=== PATIENT | male | born 1960 | race Caucasian/White ===

== ENCOUNTER 2019-11-25 12:37 | Inpatient (IN) | payer SELFPAY ==
[~2019-11-25] VITALS: Ht 172.7 cm; Wt 88.5 kg
--- NOTE | 2019-11-25 13:04 | Emergency Department Note ---
History of Present Illnes History of Present Illness Chief Complaint: General Medicine Complaints History of Present Illness This is a 59 year old male arrives the ED with diffuse body swelling abdominal distention. States he is concerned he has liver cirrhosis. Patient minutes to drinking daily. Chief Complaint Comment Patient in from home with complaints of abdominal distension, bilateral lower extremity edema, and generalized pain from "everything being so tight". Patient reports a recent weight gain of 20-30 lbs. Patient reports that he was at [facility] 2 weeks ago where they tested his liver with an MRI and he was told his liver is "borderline". They discharged him home with lisinopril with HCTZ and told him that would help with the swelling. Patient states that it has not helped at all. Socially, the patient does report daily drinking of at least 2 beers with heavier consumption on other days. Patient denies smoking or history of smoking. Patient does have a jaundiced appearance to his skin and eyes. Historian: Patient Arrival Mode: Car Onset (how long ago): day(s) Severity: mild Duration (how long): day(s) Progression: worsening Chronicity: new Past Medical/Family History Physician Review I have reviewed the patient's past medical and family history. Any updates have been documented here. Past Medical History Recent Fever: No Clinical Suspicion of Infectio: No New/Unexplained Change in Ment: No Past Medical History: Hypertension Other Medical History: seasonal allergies Other Surgery: prostatectomy Social History Smoking Cessation: Never Smoker Alcohol Use: Daily Any Illegal Drug Use: No Physically hurt or threatened: No Other Any Pre-Existing Lines (PICC,: No Review of Systems Review of Systems Constitutional: Reports no symptoms EENTM: Reports no symptoms Cardiovascular: Reports no symptoms Respiratory: Reports no symptoms Gastrointestinal: Reports as per HPI, Reports abdominal pain Genitourinary: Reports no symptoms Musculoskeletal: Reports no symptoms Integumentary: Reports no symptoms Neurological: Reports no symptoms Psychological: Reports no symptoms Endocrine: Reports no symptoms Hematological/Lymphatic: Reports no symptoms Physical Exam Related Data Allergies: Coded Allergies: No Known Allergies (Unverified , 11/25/19) Triage Vital Signs Vital Signs Date Time Temp Pulse Resp B/P (MAP) Pulse Ox O2 Delivery O2 Flow Rate FiO2 11/25/19 12:40 98.3 125 18 175/131 97 Room Air Vital signs reviewed: Yes Physical Exam CONSTITUTIONAL Constitutional: Present well-developed, Present well-nourished, Present other (diffuse anasarca) HENT HENT: Present normocephalic, Present atraumatic, Present oropharynx clear/moist, Present nose normal HENT L/R: Present left ext ear normal, Present right ext ear normal EYES Eyes: Reports PERRL, Reports conjunctivae normal NECK Neck: Present ROM normal PULMONARY Pulmonary: Present effort normal, Present breath sounds normal CARDIOVASCULAR Cardiovascular: Present regular rhythm, Present heart sounds normal, Present capillary refill normal, Present normal rate GASTROINTESTINAL Abdominal: Present soft, Present bowel sounds normal, Present distension, Present tender GENITOURINARY Genitourinary: Present exam deferred SKIN Skin: Present warm, Present dry MUSCULOSKELETAL Musculoskeletal: Present ROM normal NEUROLOGICAL Neurological: Present alert, Present oriented x 3, Present no gross motor or sensory deficits PSYCHOLOGICAL Psychological: Present mood/affect normal, Present judgement normal Results Laboratory Lab results reviewed: Yes Laboratory comments Laboratory Tests Test 11/25/19 15:38 11/25/19 14:14 11/25/19 12:00 Urine Color Brown (YELLOW) Urine Clarity Cloudy (CLEAR) Urine pH 5.5 (5 - 7) Urine Specific [place] 1.025 (1.010-1.025) Urine Protein Negative (NEGATIVE) Urine Glucose (UA) Negative (NEGATIVE) Urine Ketones Negative (NEGATIVE) Urine Blood Negative (NEGATIVE) Urine Nitrite Negative (NEGATIVE) Urine Bilirubin Small (NEGATIVE) Urine Urobilinogen 1 mg/dL (0.2 - 1) Urine Leukocyte Esterase Negative (NEGATIVE) Urine RBC None /HPF (0-5) Urine WBC None /HPF (0-5) Urine Epithelial Cells None /LPF (NONE) Urine Bacteria None /HPF (NONE) Lactic Acid Level 1.9 mmol/L (0.5-2.0) White Blood Count 10.48 x10e3/uL (4.8-10.8) Red Blood Count 3.44 x10e6/uL (4.3-5.7) Hemoglobin 11.4 g/dL (14.0-18.0) Hematocrit 34.6 % (38.2-49.6) Mean Corpuscular Volume 100.6 fL (81-99) Mean Corpuscular Hemoglobin 33.1 pg (28-32) Mean Corpuscular Hemoglobin Concent 32.9 g/dL (31-35) Red Cell Distribution Width 17.8 % (11.7-14.4) Platelet Count 297 x10e3/uL (140-360) Neutrophils (%) (Auto) 67.8 % (38.7-80.0) Lymphocytes (%) (Auto) 15.8 % (18.0-39.1) Monocytes (%) (Auto) 10.8 % (4.4-11.3) Eosinophils (%) (Auto) 3.6 % (0.0-6.0) Basophils (%) (Auto) 1.3 % (0.0-1.0) Neutrophils # (Auto) 7.1 (2.1-6.9) Lymphocytes # (Auto) 1.7 (1.0-3.2) Monocytes # (Auto) 1.1 (0.2-0.8) Eosinophils # (Auto) 0.4 (0.0-0.4) Basophils # (Auto) 0.1 (0.0-0.1) Absolute Immature Granulocyte (auto 0.07 x10e3/uL (0-0.1) Sodium Level 136 mmol/L (136-145) Potassium Level 3.7 mmol/L (3.5-5.1) Chloride Level 99 mmol/L (98-107) Carbon Dioxide Level 26 mmol/L (22-29) Anion Gap 14.7 mmol/L (8-16) Blood Urea Nitrogen 8 mg/dL (7-26) Creatinine 0.77 mg/dL (0.72-1.25) Estimat Glomerular Filtration Rate > 60 ML/MIN (60-) BUN/Creatinine Ratio 10 (6-25) Glucose Level 88 mg/dL (74-118) Calcium Level 8.3 mg/dL (8.4-10.2) Total Bilirubin 5.7 mg/dL (0.2-1.2) Aspartate Amino Transf (AST/SGOT) 166 IU/L (5-34) Alanine Aminotransferase (ALT/SGPT) 59 IU/L (0-55) Alkaline Phosphatase 265 IU/L (40-150) Creatine Kinase 77 IU/L (30-200) Creatine Kinase MB 2.70 ng/mL (0-5.0) Troponin I 0.008 ng/mL (0-0.300) B-Type Natriuretic Peptide 57.5 pg/mL (0-100) Total Protein 6.1 g/dL (6.5-8.1) Albumin 3.0 g/dL (3.5-5.0) Globulin 3.1 g/dL (2.3-3.5) Albumin/Globulin Ratio 1.0 (0.8-2.0) Lipase 51 U/L (8-78) Imaging Imaging results reviewed: Yes Impressions ADRENALS: No adrenal nodules. KIDNEYS/URETERS: No hydronephrosis, stones, or solid mass lesions. PELVIC ORGANS/BLADDER: Status post prostatectomy. PERITONEUM / RETROPERITONEUM: Moderate ascites in the abdomen and pelvis. LYMPH NODES: No lymphadenopathy. VESSELS: Mild atherosclerotic calcifications of the nonaneurysmal abdominal aorta and major branches. GI TRACT: Diverticulosis without CT evidence of diverticulitis. No abnormal bowel thickening. No bowel obstruction. BONES AND SOFT TISSUES: No acute osseous injury. No suspicious lytic or blastic lesions. Degenerative changes of the visualized spine. IMPRESSION: No pulmonary embolism. No focal pneumonia or pulmonary edema. Diffuse hepatic steatosis. Moderate ascites in the abdomen and pelvis. Diverticulosis without CT evidence of diverticulitis. Assessment & Plan Medical Decision Making MDM 59 M arrived to the ED with diffuse abdominal pain. Patient noted to have marked LFTs elevation as well as hyperbilirubinemia. Patient with abdominal pain 3 patient admitted for a HIDA scan formal GI evaluation. Patient empirically covered with antibiotics for impending sepsis @ 1500 Assessment & Plan Final Impression: (1) Hyperbilirubinemia Depart Disposition: ADMITTED Last Vital Signs Date Time Temp Pulse Resp B/P (MAP) Pulse Ox O2 Delivery O2 Flow Rate FiO2 11/25/19 12:53 113 18 162/111 97 11/25/19 12:40 98.3 Room Air JUNE BELL DO Nov 25, 2019 13:04
[2019-11-25 13:08] LABS: BASOPHILS # (AUTO) 0.1 (0.0-0.1); BASOPHILS % 1.3 % (0.0-1.0); EOSINOPHILS # (AUTO) 0.4 (0.0-0.4); EOSINOPHILS % 3.6 % (0.0-6.0); HEMATOCRIT 34.6 % (38.2-49.6); HEMOGLOBIN 11.4 g/dL (14.0-18.0); LYMPHOCYTES # (AUTO) 1.7 (1.0-3.2); LYMPHOCYTES % 15.8 % (18.0-39.1); MEAN CORPUSCULAR HEMOGLOBIN 33.1 pg (28-32); MEAN CORPUSCULAR HGB CONC 32.9 g/dL (31-35); MEAN CORPUSCULAR VOLUME 100.6 fL (81-99); MONOCYTES # (AUTO) 1.1 (0.2-0.8); MONOCYTES % 10.8 % (4.4-11.3); NEUTROPHILS # (AUTO) 7.1 (2.1-6.9); NEUTROPHILS % 67.8 % (38.7-80.0); PLATELET COUNT 297 x10e3/uL (140-360); RED BLOOD COUNT 3.44 x10e6/uL (4.3-5.7); RED CELL DISTRIBUTION WIDTH 17.8 % (11.7-14.4)
[2019-11-25 13:23] LABS: ALANINE AMINOTRANSFERASE 59 IU/L (0-55); ALKALINE PHOSPHATASE 265 IU/L (40-150); ANION GAP 14.7 mmol/L (8-16); BLOOD UREA NITROGEN 8 mg/dL (7-26); BUN/CREATININE RATIO 10 (6-25); CALCIUM 8.3 mg/dL (8.4-10.2); CARBON DIOXIDE 26 mmol/L (22-29); CHLORIDE 99 mmol/L (98-107); CREATINE KINASE 77 IU/L (30-200); CREATININE, SERUM 0.77 mg/dL (0.72-1.25); EST GLOMERULAR FILTRATION RATE > 60 ML/MIN (60-); GLUCOSE 88 mg/dL (74-118); POTASSIUM 3.7 mmol/L (3.5-5.1); SODIUM 136 mmol/L (136-145)
--- NOTE | 2019-11-25 13:40 | Diagnostic Imaging Report ---
EXAMINATION: CHEST SINGLE (PORTABLE) INDICATION: PA edema COMPARISON: None FINDINGS: LINES/TUBES:EKG leads overlie the chest. LUNGS:The lung volumes are low. Mild bibasilar subsegmental atelectasis. PLEURA:No pleural effusion or pneumothorax. MEDIASTINUM:The cardiomediastinal silhouette appears normal in size and shape. BONES/SOFT TISSUES:No acute osseous injury. ABDOMEN:No free air under the diaphragm. IMPRESSION: Low lung volumes and mild bibasilar subsegmental atelectasis. No focal pneumonia or pulmonary edema. Signed by: Barney Jason MD on 11/25/2019 1:36 PM
--- OUTSIDE RECORDS SUMMARY | 2019-11-25 13:53 | XMS REPORT | Continuity of Care Document ---
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 granulocytes (myelocytes,pro-myelocytes, meta-myelocytes) in the peripheral blood ofnon- individuals can indicate a response toinfection, inflammation, or other stimulus to the bonemarrow" LYMPHOCYTE % (test code = LY%) 18.8 % 25.0-55.0 L MONOCYTE % (test code = MO%) 9.9 % 0.0-10.0 N EOSINOPHIL % (test code = EO%) 0.8 % 0.0-5.0 N BASOPHIL % (test code = BA%) 1.6 % 0.0-1.0 H NUCLEATED RBC % (test code = NRBC%) 0.3 % 0-0 H NEUTROPHIL # (test code = NT#) 5.41 K/mm3 1.8-7.7 N IMMATURE GRANULOCYTE # (test code = IG#) 0.50 x10 3/uL 0-0.03 H LYMPHOCYTE # (test code = LY#) 1.61 K/mm3 1.0-5.0 N MONOCYTE # (test code = MO#) 0.85 K/mm3 0-0.8 H EOSINOPHIL # (test code = EO#) 0.07 K/mm3 0.0-0.5 N BASOPHIL # (test code = BA#) 0.14 K/mm3 0.0-0.2 N NUCLEATED RBC # (test code = NRBC#) 0.03 K/mm3 0.0-0.1 N MANUAL DIFF REQUIRED (test code = MDIFF) DIFF NEEDED STAIN ACCEPTABILITY (test code = STN ACCEPTABLE) TOTAL CELLS COUNTED (test code = TCC) #CELLS SEGMENTED NEUTROPHILS (test code = SEG) % 39-69 LYMPHOCYTE (test code = LYMPH) % 25-55 MONOCYTE (test code = MON) % 0-10 EOSINOPHIL (test code = EOS) % 0.0-5.0 CABOT RINGS (test code = CAB) MORPHOLOGY COMMENT (test code = MOC) PLATELET ESTIMATE (test code = PLTEST) PLATELET MORPHOLOGY (test code = PLTMORPH) CBC W/MANUAL [id number] 02:44:00* Test Item Value Reference Range Interpretation Comments WHITE BLOOD CELL (test code = WBC) 8.6 K/mm3 4.5-12.5 N RED BLOOD CELL (test code = RBC) 3.62 mill/mm3 4.0-5.8 L HEMOGLOBIN (test code = HGB) 11.2 gram/dL 13.0-17.5 L HEMATOCRIT (test code = HCT) 32.3 % 42.0-52.0 L MEAN CELL VOLUME (test code = MCV) 89.2 fL 80-98 N MEAN CELL HGB (test code = MCH) 30.9 picogram 27.0-33.0 N MEAN CELL HGB CONCETRATION (test code = MCHC) 34.7 gram/dL 33.0-36. 0 N RED CELL DISTRIBUTION WIDTH (test code = RDW) 21.1 % 11.6-16. 2 H RED CELL DISTRIBUTION WIDTH SD (test code = RDW-SD) 66.5 fL 37 .0-51.0 H PLATELET COUNT (test code = PLT) 103 K/mm3 150-450 L MEAN PLATELET VOLUME (test code = MPV) 12.3 fL 6.7-11.0 H NEUTROPHIL % (test code = NT%) 63.1 % 39.0-69.0 N IMMATURE GRANULOCYTE % (test code = IG%) 5.8 % 0.0-5.0 H "The appearance of immature granulocytes (myelocytes,pro-myelocytes, meta-myelocytes) in the peripheral blood ofnon- individuals can indicate a response toinfection, inflammation, or other stimulus to the bonemarrow" LYMPHOCYTE % (test code = LY%) 18.8 % 25.0-55.0 L MONOCYTE % (test code = MO%) 9.9 % 0.0-10.0 N EOSINOPHIL % (test code = EO%) 0.8 % 0.0-5.0 N BASOPHIL % (test code = BA%) 1.6 % 0.0-1.0 H NUCLEATED RBC % (test code = NRBC%) 0.3 % 0-0 H NEUTROPHIL # (test code = NT#) 5.41 K/mm3 1.8-7.7 N IMMATURE GRANULOCYTE # (test code = IG#) 0.50 x10 3/uL 0-0.03 H LYMPHOCYTE # (test code = LY#) 1.61 K/mm3 1.0-5.0 N MONOCYTE # (test code = MO#) 0.85 K/mm3 0-0.8 H EOSINOPHIL # (test code = EO#) 0.07 K/mm3 0.0-0.5 N BASOPHIL # (test code = BA#) 0.14 K/mm3 0.0-0.2 N NUCLEATED RBC # (test code = NRBC#) 0.03 K/mm3 0.0-0.1 N MANUAL DIFF REQUIRED (test code = MDIFF) DIFF NEEDED STAIN ACCEPTABILITY (test code = STN ACCEPTABLE) TOTAL CELLS COUNTED (test code = TCC) #CELLS SEGMENTED NEUTROPHILS (test code = SEG) % 39-69 LYMPHOCYTE (test code = LYMPH) % 25-55 MONOCYTE (test code = MON) % 0-10 EOSINOPHIL (test code = EOS) % 0.0-5.0 MORPHOLOGY COMMENT (test code = MOC) PLATELET ESTIMATE (test code = PLTEST) PLATELET MORPHOLOGY (test code = PLTMORPH) CBC W/MANUAL [id number] 02:44:00* Test Item Value Reference Range Interpretation Comments WHITE BLOOD CELL (test code = WBC) 8.6 K/mm3 4.5-12.5 N RED BLOOD CELL (test code = RBC) 3.62 mill/mm3 4.0-5.8 L HEMOGLOBIN (test code = HGB) 11.2 gram/dL 13.0-17.5 L HEMATOCRIT (test code = HCT) 32.3 % 42.0-52.0 L MEAN CELL VOLUME (test code = MCV) 89.2 fL 80-98 N MEAN CELL HGB (test code = MCH) 30.9 picogram 27.0-33.0 N MEAN CELL HGB CONCETRATION (test code = MCHC) 34.7 gram/dL 33.0-36. 0 N RED CELL DISTRIBUTION WIDTH (test code = RDW) 21.1 % 11.6-16. 2 H RED CELL DISTRIBUTION WIDTH SD (test code = RDW-SD) 66.5 fL 37 .0-51.0 H PLATELET COUNT (test code = PLT) 103 K/mm3 150-450 L MEAN PLATELET VOLUME (test code = MPV) 12.3 fL 6.7-11.0 H NEUTROPHIL % (test code = NT%) 63.1 % 39.0-69.0 N IMMATURE GRANULOCYTE % (test code = IG%) 5.8 % 0.0-5.0 H "The appearance of immature granulocytes (myelocytes,pro-myelocytes, meta-myelocytes) in the peripheral blood ofnon- individuals can indicate a response toinfection, inflammation, or other stimulus to the bonemarrow" LYMPHOCYTE % (test code = LY%) 18.8 % 25.0-55.0 L MONOCYTE % (test code = MO%) 9.9 % 0.0-10.0 N EOSINOPHIL % (test code = EO%) 0.8 % 0.0-5.0 N BASOPHIL % (test code = BA%) 1.6 % 0.0-1.0 H NUCLEATED RBC % (test code = NRBC%) 0.3 % 0-0 H NEUTROPHIL # (test code = NT#) 5.41 K/mm3 1.8-7.7 N IMMATURE GRANULOCYTE # (test code = IG#) 0.50 x10 3/uL 0-0.03 H LYMPHOCYTE # (test code = LY#) 1.61 K/mm3 1.0-5.0 N MONOCYTE # (test code = MO#) 0.85 K/mm3 0-0.8 H EOSINOPHIL # (test code = EO#) 0.07 K/mm3 0.0-0.5 N BASOPHIL # (test code = BA#) 0.14 K/mm3 0.0-0.2 N NUCLEATED RBC # (test code = NRBC#) 0.03 K/mm3 0.0-0.1 N MANUAL DIFF REQUIRED (test code = MDIFF) DIFF NEEDED STAIN ACCEPTABILITY (test code = STN ACCEPTABLE) TOTAL CELLS COUNTED (test code = TCC) #CELLS SEGMENTED NEUTROPHILS (test code = SEG) % 39-69 LYMPHOCYTE (test code = LYMPH) % 25-55 MONOCYTE (test code = MON) % 0-10 MORPHOLOGY COMMENT (test code = MOC) PLATELET ESTIMATE (test code = PLTEST) PLATELET MORPHOLOGY (test code = PLTMORPH) CBC W/MANUAL [id number] 02:44:00* Test Item Value Reference Range Interpretation Comments WHITE BLOOD CELL (test code = WBC) 8.6 K/mm3 4.5-12.5 N RED BLOOD CELL (test code = RBC) 3.62 mill/mm3 4.0-5.8 L HEMOGLOBIN (test code = HGB) 11.2 gram/dL 13.0-17.5 L HEMATOCRIT (test code = HCT) 32.3 % 42.0-52.0 L MEAN CELL VOLUME (test code = MCV) 89.2 fL 80-98 N MEAN CELL HGB (test code = MCH) 30.9 picogram 27.0-33.0 N MEAN CELL HGB CONCETRATION (test code = MCHC) 34.7 gram/dL 33.0-36. 0 N RED CELL DISTRIBUTION WIDTH (test code = RDW) 21.1 % 11.6-16. 2 H RED CELL DISTRIBUTION WIDTH SD (test code = RDW-SD) 66.5 fL 37 .0-51.0 H PLATELET COUNT (test code = PLT) 103 K/mm3 150-450 L MEAN PLATELET VOLUME (test code = MPV) 12.3 fL 6.7-11.0 H NEUTROPHIL % (test code = NT%) 63.1 % 39.0-69.0 N IMMATURE GRANULOCYTE % (test code = IG%) 5.8 % 0.0-5.0 H "The appearance of immature granulocytes (myelocytes,pro-myelocytes, meta-myelocytes) in the peripheral blood ofnon- individuals can indicate a response toinfection, inflammation, or other stimulus to the bonemarrow" LYMPHOCYTE % (test code = LY%) 18.8 % 25.0-55.0 L MONOCYTE % (test code = MO%) 9.9 % 0.0-10.0 N EOSINOPHIL % (test code = EO%) 0.8 % 0.0-5.0 N BASOPHIL % (test code = BA%) 1.6 % 0.0-1.0 H NUCLEATED RBC % (test code = NRBC%) 0.3 % 0-0 H NEUTROPHIL # (test code = NT#) 5.41 K/mm3 1.8-7.7 N IMMATURE GRANULOCYTE # (test code = IG#) 0.50 x10 3/uL 0-0.03 H LYMPHOCYTE # (test code = LY#) 1.61 K/mm3 1.0-5.0 N MONOCYTE # (test code = MO#) 0.85 K/mm3 0-0.8 H EOSINOPHIL # (test code = EO#) 0.07 K/mm3 0.0-0.5 N BASOPHIL # (test code = BA#) 0.14 K/mm3 0.0-0.2 N NUCLEATED RBC # (test code = NRBC#) 0.03 K/mm3 0.0-0.1 N MANUAL DIFF REQUIRED (test code = MDIFF) DIFF NEEDED STAIN ACCEPTABILITY (test code = STN ACCEPTABLE) TOTAL CELLS COUNTED (test code = TCC) #CELLS SEGMENTED NEUTROPHILS (test code = SEG) % 39-69 LYMPHOCYTE (test code = LYMPH) % 25-55 MONOCYTE (test code = MON) % 0-10 EOSINOPHIL (test code = EOS) % 0.0-5.0 CABOT RINGS (test code = CAB) MORPHOLOGY COMMENT (test code = MOC) PLATELET ESTIMATE (test code = PLTEST) PLATELET MORPHOLOGY (test code = PLTMORPH) [id number] 19:58:00* Test Item Value Reference Range Interpretation Comments GLUBED (test code = GLUBED) 152 mg/dL 74-106 H Performed by certified boom conveyor operator at [facility] [id number] 16:15:00* Test Item Value Reference Range Interpretation Comments GLUBED (test code = GLUBED) 111 mg/dL 74-106 H [facility] [id number] 12:27:00* Test Item Value Reference Range Interpretation Comments GLUBED (test code = GLUBED) 114 mg/dL 74-106 H Performed by certified boom conveyor operator at [facility] [id number] 08:41:00* Test Item Value Reference Range Interpretation Comments GLUBED (test code = GLUBED) 83 mg/dL 74-106 N Performed by certified boom conveyor operator at [facility] CBC W/MANUAL [id number] 03:42:00* Test Item Value Reference Range Interpretation Comments WHITE BLOOD CELL (test code = WBC) 9.0 K/mm3 4.5-12.5 N RED BLOOD CELL (test code = RBC) 3.65 mill/mm3 4.0-5.8 L HEMOGLOBIN (test code = HGB) 11.3 gram/dL 13.0-17.5 L HEMATOCRIT (test code = HCT) 31.6 % 42.0-52.0 L MEAN CELL VOLUME (test code = MCV) 86.6 fL 80-98 N MEAN CELL HGB (test code = MCH) 31.0 picogram 27.0-33.0 N MEAN CELL HGB CONCETRATION (test code = MCHC) 35.8 gram/dL 33.0-36. 0 N RED CELL DISTRIBUTION WIDTH (test code = RDW) 19.9 % 11.6-16. 2 H RED CELL DISTRIBUTION WIDTH SD (test code = RDW-SD) 60.3 fL 37 .0-51.0 H PLATELET COUNT (test code = PLT) 101 K/mm3 150-450 L MEAN PLATELET VOLUME (test code = MPV) 11.6 fL 6.7-11.0 H NEUTROPHIL % (test code = NT%) 67.5 % 39.0-69.0 N IMMATURE GRANULOCYTE % (test code = IG%) 5.4 % 0.0-5.0 H "The appearance of immature granulocytes (myelocytes,pro-myelocytes, meta-myelocytes) in the peripheral blood ofnon- individuals can indicate a response toinfection, inflammation, or other stimulus to the bonemarrow" LYMPHOCYTE % (test code = LY%) 16.0 % 25.0-55.0 L MONOCYTE % (test code = MO%) 10.4 % 0.0-10.0 H EOSINOPHIL % (test code = EO%) 0.4 % 0.0-5.0 N BASOPHIL % (test code = BA%) 0.3 % 0.0-1.0 N NUCLEATED RBC % (test code = NRBC%) 0.2 % 0-0 H NEUTROPHIL # (test code = NT#) 6.08 K/mm3 1.8-7.7 N IMMATURE GRANULOCYTE # (test code = IG#) 0.49 x10 3/uL 0-0.03 H LYMPHOCYTE # (test code = LY#) 1.44 K/mm3 1.0-5.0 N MONOCYTE # (test code = MO#) 0.94 K/mm3 0-0.8 H EOSINOPHIL # (test code = EO#) 0.04 K/mm3 0.0-0.5 N BASOPHIL # (test code = BA#) 0.03 K/mm3 0.0-0.2 N NUCLEATED RBC # (test code = NRBC#) 0.02 K/mm3 0.0-0.1 N MANUAL DIFF REQUIRED (test code = MDIFF) DIFF NEEDED STAIN ACCEPTABILITY (test code = STN ACCEPTABLE) STAIN ACCEPTABLE TOTAL CELLS COUNTED (test code = TCC) 114 #CELLS SEGMENTED NEUTROPHILS (test code = SEG) 70.2 % 39-69 H BAND NEUTROPHIL (test code = BAND) 0 % 0-10 N LYMPHOCYTE (test code = LYMPH) 14.9 % 25-55 L REACTIVE LYMPH (test code = RELYMPH) 0 % MONOCYTE (test code = MON) 13.2 % 0-10 H EOSINOPHIL (test code = EOS) 0 % 0.0-5.0 N BASOPHIL (test code = BASO) 1.7 % 0-1.0 H METAMYELOCYTE (test code = META) 0 % 0-0 N MYELOCYTE (test code = MYELO) 0 % 0.0-0.0 N PROMYELOCYTE (test code = PROM) 0 % 0-0 N POLYCHROMASIA (test code = POLC) 1+ POIKILOCYTOSIS (test code = POIK) 2+ ANISOCYTOSIS (test code = ANISO) 2+ MACROCYTOSIS (test code = MACR) 2+ TARGET CELLS (test code = TGT) 2+ PLATELET ESTIMATE (test code = PLTEST) DECREASED PLATELET MORPHOLOGY (test code = PLTMORPH) NORMAL IMMATURE FORMS (test code = IMMAT) 0 % 0-0 N COMPREHENSIVE METABOLIC [id number] 03:37:00* Test Item Value Reference Range Interpretation Comments SODIUM (test code = NA) 132 mmol/L 136-145 L POTASSIUM (test code = K) 3.5 mmol/L 3.5-5.1 N CHLORIDE (test code = CL) 98.0 mmol/L 98-107 N CARBON DIOXIDE (test code = CO2) 23.0 mmol/L 21-32 N ANION GAP (test code = GAP) 14.5 10-20 N GLUCOSE (test code = GLU) 92 mg/dL 74-106 N BLOOD UREA NITROGEN (test code = BUN) 6 mg/dL 7-18 L GLOMERULAR FILTRATION RATE (test code = GFR) > 60 mL/min >=60 Estimated GFR by using Modified MDRD formula.Chronic kidney disease is defined as either kidney damageor GFR <60 mL/min/1.73 m2 for >3 months. CREATININE (test code = CREAT) 0.70 mg/dL 0.7-1.3 N BUN/CREATININE RATIO (test code = BUN/CREA) 9.0 10-20 L TOTAL PROTEIN (test code = PROT) 4.6 gram/dL 6.4-8.2 L ALBUMIN (test code = ALB) 1.7 g/dL 3.4-5.0 L GLOBULIN (test code = GLOB) 2.9 gram/dL 2.7-4.2 N ALBUMIN/GLOBULIN RATIO (test code = A/G) 0.6 0.75-1.50 L CALCIUM (test code = CA) 7.6 mg/dL 8.5-10.1 L BILIRUBIN TOTAL (test code = BILT) 14.20 mg/dL 0.0-1.0 H SGOT/AST (test code = AST) 270 IUnit/L 15-37 H SGPT/ALT (test code = ALT) 89 IUnit/L 12-78 H ALKALINE PHOSPHATASE TOTAL (test code = ALKP) 374 IUnit/L 45-117 H Note change in reference range due to change in reagent. COMPREHENSIVE METABOLIC [id number] 03:19:00* Test Item Value Reference Range Interpretation Comments SODIUM (test code = NA) 132 mmol/L 136-145 L POTASSIUM (test code = K) 3.5 mmol/L 3.5-5.1 N CHLORIDE (test code = CL) 98.0 mmol/L 98-107 N CARBON DIOXIDE (test code = CO2) mmol/L 21-32 ANION GAP (test code = GAP) 10-20 GLUCOSE (test code = GLU) mg/dL 74-106 BLOOD UREA NITROGEN (test code = BUN) mg/dL 7-18 GLOMERULAR FILTRATION RATE (test code = GFR) mL/min >=60 CREATININE (test code = CREAT) mg/dL 0.7-1.3 BUN/CREATININE RATIO (test code = BUN/CREA) 10-20 TOTAL PROTEIN (test code = PROT) gram/dL 6.4-8.2 ALBUMIN (test code = ALB) g/dL 3.4-5.0 GLOBULIN (test code = GLOB) gram/dL 2.7-4.2 ALBUMIN/GLOBULIN RATIO (test code = A/G) 0.75-1.50 CALCIUM (test code = CA) mg/dL 8.5-10.1 BILIRUBIN TOTAL (test code = BILT) mg/dL 0.0-1.0 SGOT/AST (test code = AST) IUnit/L 15-37 SGPT/ALT (test code = ALT) IUnit/L 12-78 ALKALINE PHOSPHATASE TOTAL (test code = ALKP) IUnit/L 45-117 CBC W/MANUAL [id number] 03:10:00* Test Item Value Reference Range Interpretation Comments WHITE BLOOD CELL (test code = WBC) 9.0 K/mm3 4.5-12.5 N RED BLOOD CELL (test code = RBC) 3.65 mill/mm3 4.0-5.8 L HEMOGLOBIN (test code = HGB) 11.3 gram/dL 13.0-17.5 L HEMATOCRIT (test code = HCT) 31.6 % 42.0-52.0 L MEAN CELL VOLUME (test code = MCV) 86.6 fL 80-98 N MEAN CELL HGB (test code = MCH) 31.0 picogram 27.0-33.0 N MEAN CELL HGB CONCETRATION (test code = MCHC) 35.8 gram/dL 33.0-36. 0 N RED CELL DISTRIBUTION WIDTH (test code = RDW) 19.9 % 11.6-16. 2 H RED CELL DISTRIBUTION WIDTH SD (test code = RDW-SD) 60.3 fL 37 .0-51.0 H PLATELET COUNT (test code = PLT) 101 K/mm3 150-450 L MEAN PLATELET VOLUME (test code = MPV) 11.6 fL 6.7-11.0 H NEUTROPHIL % (test code = NT%) 67.5 % 39.0-69.0 N IMMATURE GRANULOCYTE % (test code = IG%) 5.4 % 0.0-5.0 H "The appearance of immature granulocytes (myelocytes,pro-myelocytes, meta-myelocytes) in the peripheral blood ofnon- individuals can indicate a response toinfection, inflammation, or other stimulus to the bonemarrow" LYMPHOCYTE % (test code = LY%) 16.0 % 25.0-55.0 L MONOCYTE % (test code = MO%) 10.4 % 0.0-10.0 H EOSINOPHIL % (test code = EO%) 0.4 % 0.0-5.0 N BASOPHIL % (test code = BA%) 0.3 % 0.0-1.0 N NUCLEATED RBC % (test code = NRBC%) 0.2 % 0-0 H NEUTROPHIL # (test code = NT#) 6.08 K/mm3 1.8-7.7 N IMMATURE GRANULOCYTE # (test code = IG#) 0.49 x10 3/uL 0-0.03 H LYMPHOCYTE # (test code = LY#) 1.44 K/mm3 1.0-5.0 N MONOCYTE # (test code = MO#) 0.94 K/mm3 0-0.8 H EOSINOPHIL # (test code = EO#) 0.04 K/mm3 0.0-0.5 N BASOPHIL # (test code = BA#) 0.03 K/mm3 0.0-0.2 N NUCLEATED RBC # (test code = NRBC#) 0.02 K/mm3 0.0-0.1 N MANUAL DIFF REQUIRED (test code = MDIFF) DIFF NEEDED STAIN ACCEPTABILITY (test code = STN ACCEPTABLE) TOTAL CELLS COUNTED (test code = TCC) #CELLS SEGMENTED NEUTROPHILS (test code = SEG) % 39-69 LYMPHOCYTE (test code = LYMPH) % 25-55 MONOCYTE (test code = MON) % 0-10 EOSINOPHIL (test code = EOS) % 0.0-5.0 CABOT RINGS (test code = CAB) MORPHOLOGY COMMENT (test code = MOC) PLATELET ESTIMATE (test code = PLTEST) PLATELET MORPHOLOGY (test code = PLTMORPH) CBC W/MANUAL [id number] 03:10:00* Test Item Value Reference Range Interpretation Comments WHITE BLOOD CELL (test code = WBC) 9.0 K/mm3 4.5-12.5 N RED BLOOD CELL (test code = RBC) 3.65 mill/mm3 4.0-5.8 L HEMOGLOBIN (test code = HGB) 11.3 gram/dL 13.0-17.5 L HEMATOCRIT (test code = HCT) 31.6 % 42.0-52.0 L MEAN CELL VOLUME (test code = MCV) 86.6 fL 80-98 N MEAN CELL HGB (test code = MCH) 31.0 picogram 27.0-33.0 N MEAN CELL HGB CONCETRATION (test code = MCHC) 35.8 gram/dL 33.0-36. 0 N RED CELL DISTRIBUTION WIDTH (test code = RDW) 19.9 % 11.6-16. 2 H RED CELL DISTRIBUTION WIDTH SD (test code = RDW-SD) 60.3 fL 37 .0-51.0 H PLATELET COUNT (test code = PLT) 101 K/mm3 150-450 L MEAN PLATELET VOLUME (test code = MPV) 11.6 fL 6.7-11.0 H NEUTROPHIL % (test code = NT%) 67.5 % 39.0-69.0 N IMMATURE GRANULOCYTE % (test code = IG%) 5.4 % 0.0-5.0 H "The appearance of immature granulocytes (myelocytes,pro-myelocytes, meta-myelocytes) in the peripheral blood ofnon- individuals can indicate a response toinfection, inflammation, or other stimulus to the bonemarrow" LYMPHOCYTE % (test code = LY%) 16.0 % 25.0-55.0 L MONOCYTE % (test code = MO%) 10.4 % 0.0-10.0 H EOSINOPHIL % (test code = EO%) 0.4 % 0.0-5.0 N BASOPHIL % (test code = BA%) 0.3 % 0.0-1.0 N NUCLEATED RBC % (test code = NRBC%) 0.2 % 0-0 H NEUTROPHIL # (test code = NT#) 6.08 K/mm3 1.8-7.7 N IMMATURE GRANULOCYTE # (test code = IG#) 0.49 x10 3/uL 0-0.03 H LYMPHOCYTE # (test code = LY#) 1.44 K/mm3 1.0-5.0 N MONOCYTE # (test code = MO#) 0.94 K/mm3 0-0.8 H EOSINOPHIL # (test code = EO#) 0.04 K/mm3 0.0-0.5 N BASOPHIL # (test code = BA#) 0.03 K/mm3 0.0-0.2 N NUCLEATED RBC # (test code = NRBC#) 0.02 K/mm3 0.0-0.1 N MANUAL DIFF REQUIRED (test code = MDIFF) DIFF NEEDED STAIN ACCEPTABILITY (test code = STN ACCEPTABLE) TOTAL CELLS COUNTED (test code = TCC) #CELLS SEGMENTED NEUTROPHILS (test code = SEG) % 39-69 LYMPHOCYTE (test code = LYMPH) % 25-55 MONOCYTE (test code = MON) % 0-10 EOSINOPHIL (test code = EOS) % 0.0-5.0 MORPHOLOGY COMMENT (test code = MOC) PLATELET ESTIMATE (test code = PLTEST) PLATELET MORPHOLOGY (test code = PLTMORPH) CBC W/MANUAL [id number] 03:10:00* Test Item Value Reference Range Interpretation Comments WHITE BLOOD CELL (test code = WBC) 9.0 K/mm3 4.5-12.5 N RED BLOOD CELL (test code = RBC) 3.65 mill/mm3 4.0-5.8 L HEMOGLOBIN (test code = HGB) 11.3 gram/dL 13.0-17.5 L HEMATOCRIT (test code = HCT) 31.6 % 42.0-52.0 L MEAN CELL VOLUME (test code = MCV) 86.6 fL 80-98 N MEAN CELL HGB (test code = MCH) 31.0 picogram 27.0-33.0 N MEAN CELL HGB CONCETRATION (test code = MCHC) 35.8 gram/dL 33.0-36. 0 N RED CELL DISTRIBUTION WIDTH (test code = RDW) 19.9 % 11.6-16. 2 H RED CELL DISTRIBUTION WIDTH SD (test code = RDW-SD) 60.3 fL 37 .0-51.0 H PLATELET COUNT (test code = PLT) 101 K/mm3 150-450 L MEAN PLATELET VOLUME (test code = MPV) 11.6 fL 6.7-11.0 H NEUTROPHIL % (test code = NT%) 67.5 % 39.0-69.0 N IMMATURE GRANULOCYTE % (test code = IG%) 5.4 % 0.0-5.0 H "The appearance of immature granulocytes (myelocytes,pro-myelocytes, meta-myelocytes) in the peripheral blood ofnon- individuals can indicate a response toinfection, inflammation, or other stimulus to the bonemarrow" LYMPHOCYTE % (test code = LY%) 16.0 % 25.0-55.0 L MONOCYTE % (test code = MO%) 10.4 % 0.0-10.0 H EOSINOPHIL % (test code = EO%) 0.4 % 0.0-5.0 N BASOPHIL % (test code = BA%) 0.3 % 0.0-1.0 N NUCLEATED RBC % (test code = NRBC%) 0.2 % 0-0 H NEUTROPHIL # (test code = NT#) 6.08 K/mm3 1.8-7.7 N IMMATURE GRANULOCYTE # (test code = IG#) 0.49 x10 3/uL 0-0.03 H LYMPHOCYTE # (test code = LY#) 1.44 K/mm3 1.0-5.0 N MONOCYTE # (test code = MO#) 0.94 K/mm3 0-0.8 H EOSINOPHIL # (test code = EO#) 0.04 K/mm3 0.0-0.5 N BASOPHIL # (test code = BA#) 0.03 K/mm3 0.0-0.2 N NUCLEATED RBC # (test code = NRBC#) 0.02 K/mm3 0.0-0.1 N MANUAL DIFF REQUIRED (test code = MDIFF) DIFF NEEDED STAIN ACCEPTABILITY (test code = STN ACCEPTABLE) TOTAL CELLS COUNTED (test code = TCC) #CELLS SEGMENTED NEUTROPHILS (test code = SEG) % 39-69 LYMPHOCYTE (test code = LYMPH) % 25-55 MONOCYTE (test code = MON) % 0-10 MORPHOLOGY COMMENT (test code = MOC) PLATELET ESTIMATE (test code = PLTEST) PLATELET MORPHOLOGY (test code = PLTMORPH) CBC W/MANUAL [id number] 03:09:00* Test Item Value Reference Range Interpretation Comments WHITE BLOOD CELL (test code = WBC) 9.0 K/mm3 4.5-12.5 N RED BLOOD CELL (test code = RBC) 3.65 mill/mm3 4.0-5.8 L HEMOGLOBIN (test code = HGB) 11.3 gram/dL 13.0-17.5 L HEMATOCRIT (test code = HCT) 31.6 % 42.0-52.0 L MEAN CELL VOLUME (test code = MCV) 86.6 fL 80-98 N MEAN CELL HGB (test code = MCH) 31.0 picogram 27.0-33.0 N MEAN CELL HGB CONCETRATION (test code = MCHC) 35.8 gram/dL 33.0-36. 0 N RED CELL DISTRIBUTION WIDTH (test code = RDW) 19.9 % 11.6-16. 2 H RED CELL DISTRIBUTION WIDTH SD (test code = RDW-SD) 60.3 fL 37 .0-51.0 H PLATELET COUNT (test code = PLT) 101 K/mm3 150-450 L MEAN PLATELET VOLUME (test code = MPV) 11.6 fL 6.7-11.0 H NEUTROPHIL % (test code = NT%) 67.5 % 39.0-69.0 N IMMATURE GRANULOCYTE % (test code = IG%) 5.4 % 0.0-5.0 H "The appearance of immature granulocytes (myelocytes,pro-myelocytes, meta-myelocytes) in the peripheral blood ofnon- individuals can indicate a response toinfection, inflammation, or other stimulus to the bonemarrow" LYMPHOCYTE % (test code = LY%) 16.0 % 25.0-55.0 L MONOCYTE % (test code = MO%) 10.4 % 0.0-10.0 H EOSINOPHIL % (test code = EO%) 0.4 % 0.0-5.0 N BASOPHIL % (test code = BA%) 0.3 % 0.0-1.0 N NUCLEATED RBC % (test code = NRBC%) 0.2 % 0-0 H NEUTROPHIL # (test code = NT#) 6.08 K/mm3 1.8-7.7 N IMMATURE GRANULOCYTE # (test code = IG#) 0.49 x10 3/uL 0-0.03 H LYMPHOCYTE # (test code = LY#) 1.44 K/mm3 1.0-5.0 N MONOCYTE # (test code = MO#) 0.94 K/mm3 0-0.8 H EOSINOPHIL # (test code = EO#) 0.04 K/mm3 0.0-0.5 N BASOPHIL # (test code = BA#) 0.03 K/mm3 0.0-0.2 N NUCLEATED RBC # (test code = NRBC#) 0.02 K/mm3 0.0-0.1 N MANUAL DIFF REQUIRED (test code = MDIFF) DIFF NEEDED STAIN ACCEPTABILITY (test code = STN ACCEPTABLE) TOTAL CELLS COUNTED (test code = TCC) #CELLS SEGMENTED NEUTROPHILS (test code = SEG) % 39-69 LYMPHOCYTE (test code = LYMPH) % 25-55 MONOCYTE (test code = MON) % 0-10 EOSINOPHIL (test code = EOS) % 0.0-5.0 CABOT RINGS (test code = CAB) MORPHOLOGY COMMENT (test code = MOC) PLATELET ESTIMATE (test code = PLTEST) PLATELET MORPHOLOGY (test code = PLTMORPH) CBC W/MANUAL [id number] 03:09:00* Test Item Value Reference Range Interpretation Comments WHITE BLOOD CELL (test code = WBC) 9.0 K/mm3 4.5-12.5 N RED BLOOD CELL (test code = RBC) 3.65 mill/mm3 4.0-5.8 L HEMOGLOBIN (test code = HGB) 11.3 gram/dL 13.0-17.5 L HEMATOCRIT (test code = HCT) 31.6 % 42.0-52.0 L MEAN CELL VOLUME (test code = MCV) 86.6 fL 80-98 N MEAN CELL HGB (test code = MCH) 31.0 picogram 27.0-33.0 N MEAN CELL HGB CONCETRATION (test code = MCHC) 35.8 gram/dL 33.0-36. 0 N RED CELL DISTRIBUTION WIDTH (test code = RDW) 19.9 % 11.6-16. 2 H RED CELL DISTRIBUTION WIDTH SD (test code = RDW-SD) 60.3 fL 37 .0-51.0 H PLATELET COUNT (test code = PLT) 101 K/mm3 150-450 L MEAN PLATELET VOLUME (test code = MPV) 11.6 fL 6.7-11.0 H NEUTROPHIL % (test code = NT%) 67.5 % 39.0-69.0 N IMMATURE GRANULOCYTE % (test code = IG%) 5.4 % 0.0-5.0 H "The appearance of immature granulocytes (myelocytes,pro-myelocytes, meta-myelocytes) in the peripheral blood ofnon- individuals can indicate a response toinfection, inflammation, or other stimulus to the bonemarrow" LYMPHOCYTE % (test code = LY%) 16.0 % 25.0-55.0 L MONOCYTE % (test code = MO%) 10.4 % 0.0-10.0 H EOSINOPHIL % (test code = EO%) 0.4 % 0.0-5.0 N BASOPHIL % (test code = BA%) 0.3 % 0.0-1.0 N NUCLEATED RBC % (test code = NRBC%) 0.2 % 0-0 H NEUTROPHIL # (test code = NT#) 6.08 K/mm3 1.8-7.7 N IMMATURE GRANULOCYTE # (test code = IG#) 0.49 x10 3/uL 0-0.03 H LYMPHOCYTE # (test code = LY#) 1.44 K/mm3 1.0-5.0 N MONOCYTE # (test code = MO#) 0.94 K/mm3 0-0.8 H EOSINOPHIL # (test code = EO#) 0.04 K/mm3 0.0-0.5 N BASOPHIL # (test code = BA#) 0.03 K/mm3 0.0-0.2 N NUCLEATED RBC # (test code = NRBC#) 0.02 K/mm3 0.0-0.1 N MANUAL DIFF REQUIRED (test code = MDIFF) DIFF NEEDED STAIN ACCEPTABILITY (test code = STN ACCEPTABLE) TOTAL CELLS COUNTED (test code = TCC) #CELLS SEGMENTED NEUTROPHILS (test code = SEG) % 39-69 LYMPHOCYTE (test code = LYMPH) % 25-55 MONOCYTE (test code = MON) % 0-10 EOSINOPHIL (test code = EOS) % 0.0-5.0 CABOT RINGS (test code = CAB) MORPHOLOGY COMMENT (test code = MOC) PLATELET ESTIMATE (test code = PLTEST) PLATELET MORPHOLOGY (test code = PLTMORPH) - US ABDOMEN [id number] 16:58:00 Name: ADRIA EDWARDS [facility] : 1960 Age/S: 59 / M [address] Unit #: [id number] Loc: [place] [address] Phys: Skye Plata MD Acct: [id number] Dis Date: Status: REG ER PHONE #: [phone] Exam Date: 11/05/20191642 FAX #: [phone] Reason: high bili, enlarged CBD on CT EXAMS: CPT CODE: [id number] US ABDOMEN LTD 28436 REASON FOR EXAM: high bili, enlarged CBD on CT EXAM ORDER DATE: 11/05/2019 3:26 PM Attending M.D.: Skye Plata MD PROCEDURE: - US ABDOMEN LTD Technique: Grayscale and color Doppler images of the right-upper quadrant of the abdomen. Comparison: CT abdomen and pelvis 11/05/2019 FINDINGS: Aorta and IVC: Patent and grossly normal in caliber. Liver: Size: 19.9 cm craniocaudally Parenchyma and contour: Smooth contour. Increased echogenicity. Cysts and/or masses: None. Intrahepatic bile ducts: No intrahepatic biliary ductal dilation Common bile duct: 5.5 mm in diameter. No echogenic filling defects in visualized duct. However is incompletely visualized. Gallbladder: Stones/sludge: Gallbladder sludge. Wall: 2.6 mm in thickness. No discontinuity. No polyps. No pericholecystic fluid. No hyperemia. Sonographic Cortes's sign: Negative Portal vein: Portal vein caliber is within normal limits. Portal vein is patent with hepatopetal flow. Pancreas: Incompletely visualized. However the visualized portions are grossly within normal limits. Right kidney: parenchyma echogenicity: Normal echogenicity size: 12.8 x 5.4 x 6.3 cm stones: none cysts/masses: none PAGE 1 Signed Report (CONTINUED) Name: ADRIA EDWARDS [facility] : 1960 Age/S: 59 / M [address] Unit #: [id number] Loc: [place] [address] Phys: Merlin Plata MD Acct: [id number] D is Date: Status: REG ER PHONE #: [phone] Exam Date: 11/05/2019 164 FAX #: Reason: high bili, enlarged CBD on CT EXAMS: CPT CODE: [id number] [place] [address] <Continued> hydronephrosis: none Ascites/pleural effusions: Mild ascites. IMPRESSION: 1. The common bile duct is not entirely visualized, however visualized portions measure up to 5.5 mm. 2. Hepatomegaly with hepatic steatosis. 3. Gallbladder sludge without definite findings of cholecystitis. 4. Partially visualized t race ascites. Location: [facility] at 1658 Reported and si gned by: Alden Francois M.D. CC: Skye Plata MD Technologist: JOHNATHAN TUCKER Trnsdb Date/Time: 11/05/2019 (1657) [email or web address] Orig Print D/T: S: 11/05/2019 (0194) Probe: PAGE 2 Signed Report URINALYSIS [id number] 15:52:00* Test Item Value Reference Range Interpretation Comments UA COLOR (test code = COLU) Dark-Yellow YELLOW UA APPEARANCE (test code = APPU) Cloudy CLEAR A UA GLUCOSE DIPSTICK (test code = DGLUU) NEGATIVE mg/dL NEGATIVE UA BILIRUBIN DIPSTICK (test code = BILU) >10.0 (4+) mg/dL NEGATIVE UA KETONE DIPSTICK (test code = KETU) NEGATIVE mg/dL NEGATIVE UA SPECIFIC GRAVITY (test code = SGU) 1.011 1.001-1.035 UA BLOOD DIPSTICK (test code = ALLAN) Negative mg/dL NEGATIVE UA PH DIPSTICK (test code = SRIDHAR) 6.0 5.0-8.0 UA PROTEIN DIPSTICK (test code = PROU) NEGATIVE mg/dL NEGATIVE UA UROBILINIOGEN DIPSTICK (test code = URO) 3.0 (1+) mg/dL NEGATIVE A UA NITRITE DIPSTICK (test code = KAMINI) NEGATIVE NEGATIVE UA LEUKOCYTE ESTERASE W REFLEX (test code = LEUUR) NEGATIVE Paulina/uL NEGATIVE UA WBC (test code = WBCU) 0-5 per HPF 0-5 UA RBC (test code = RBCU) NONE SEEN #/HPF 0-5 UA EPITHELIAL CELLS (test code = EPIU) FEW per HPF FEW UA BACTERIA (test code = BACU) NONE SEEN #/HPF NONE UA MUCUS (test code = MUCU) FEW #/LPF FEW Urine Source? Clean CatchDRUGS OF ABUSE SCREEN [id number] 15:52:00* Test Item Value Reference Range Interpretation Comments URN COCAINE (test code = COCAURN) NEGATIVE <300 ng/mL URN CANNABINOIDS (test code = CANNABURN) NEGATIVE <50 ng/mL URN AMPHETAMINE (test code = AMPHETURN) NEGATIVE <1000 ng/mL URN BARBITURATE (test code = BARBITURN) NEGATIVE <200 ng/mL URN BENZODIAZEPINE (test code = BENZOURN) NEGATIVE <200 ng/mL URN OPIATES (test code = OPIATURN) NEGATIVE <300 ng/mL URN PHENCYCLIDINE (PCP) (test code = PHENCURN) NEGATIVE <25 ng/ mL URN METHADONE (test code = METHAURN) NEGATIVE <300 ng/mL Urine Source? Clean CatchURINALYSIS [id number] 15:36:00* Test Item Value Reference Range Interpretation Comments UA COLOR (test code = COLU) Dark-Yellow YELLOW UA APPEARANCE (test code = APPU) Cloudy CLEAR A UA GLUCOSE DIPSTICK (test code = DGLUU) NEGATIVE mg/dL NEGATIVE UA BILIRUBIN DIPSTICK (test code = BILU) >10.0 (4+) mg/dL NEGATIVE UA KETONE DIPSTICK (test code = KETU) NEGATIVE mg/dL NEGATIVE UA SPECIFIC GRAVITY (test code = SGU) 1.011 1.001-1.035 UA BLOOD DIPSTICK (test code = ALLAN) Negative mg/dL NEGATIVE UA PH DIPSTICK (test code = SRIDHAR) 6.0 5.0-8.0 UA PROTEIN DIPSTICK (test code = PROU) NEGATIVE mg/dL NEGATIVE UA UROBILINIOGEN DIPSTICK (test code = URO) 3.0 (1+) mg/dL NEGATIVE A UA NITRITE DIPSTICK (test code = KAMINI) NEGATIVE NEGATIVE UA LEUKOCYTE ESTERASE W REFLEX (test code = LEUUR) NEGATIVE Paulina/uL NEGATIVE UA WBC (test code = WBCU) 0-5 per HPF 0-5 UA RBC (test code = RBCU) NONE SEEN #/HPF 0-5 UA EPITHELIAL CELLS (test code = EPIU) FEW per HPF FEW UA BACTERIA (test code = BACU) NONE SEEN #/HPF NONE UA MUCUS (test code = MUCU) FEW #/LPF FEW Urine Source? Clean CatchDRUGS OF ABUSE SCREEN [id number] 15:36:00* Test Item Value Reference Range Interpretation Comments URN COCAINE (test code = COCAURN) <300 ng/mL URN CANNABINOIDS (test code = CANNABURN) <50 ng/mL URN AMPHETAMINE (test code = AMPHETURN) <1000 ng/mL URN BARBITURATE (test code = BARBITURN) <200 ng/mL URN BENZODIAZEPINE (test code = BENZOURN) <200 ng/mL URN OPIATES (test code = OPIATURN) <300 ng/mL URN PHENCYCLIDINE (PCP) (test code = PHENCURN) <25 ng/ mL URN METHADONE (test code = METHAURN) <300 ng/mL Urine Source? Clean CatchURINALYSIS [id number] 15:33:00* Test Item Value Reference Range Interpretation Comments UA COLOR (test code = COLU) Dark-Yellow YELLOW UA APPEARANCE (test code = APPU) Cloudy CLEAR A UA GLUCOSE DIPSTICK (test code = DGLUU) NEGATIVE mg/dL NEGATIVE UA BILIRUBIN DIPSTICK (test code = BILU) >10.0 (4+) mg/dL NEGATIVE UA KETONE DIPSTICK (test code = KETU) NEGATIVE mg/dL NEGATIVE UA SPECIFIC GRAVITY (test code = SGU) 1.011 1.001-1.035 UA BLOOD DIPSTICK (test code = ALLAN) Negative mg/dL NEGATIVE UA PH DIPSTICK (test code = SRIDHAR) 6.0 5.0-8.0 UA PROTEIN DIPSTICK (test code = PROU) NEGATIVE mg/dL NEGATIVE UA UROBILINIOGEN DIPSTICK (test code = URO) 3.0 (1+) mg/dL NEGATIVE A UA NITRITE DIPSTICK (test code = KAMINI) NEGATIVE NEGATIVE UA LEUKOCYTE ESTERASE W REFLEX (test code = LEUUR) NEGATIVE Paulina/uL NEGATIVE UA WBC (test code = WBCU) per HPF 0-5 UA RBC (test code = RBCU) per HPF 0-5 UA EPITHELIAL CELLS (test code = EPIU) per HPF Few UA BACTERIA (test code = BACU) per HPF NONE Urine Source? Clean CatchDRUGS OF ABUSE SCREEN [id number] 15:33:00* Test Item Value Reference Range Interpretation Comments URN COCAINE (test code = COCAURN) <300 ng/mL URN CANNABINOIDS (test code = CANNABURN) <50 ng/mL URN AMPHETAMINE (test code = AMPHETURN) <1000 ng/mL URN BARBITURATE (test code = BARBITURN) <200 ng/mL URN BENZODIAZEPINE (test code = BENZOURN) <200 ng/mL URN OPIATES (test code = OPIATURN) <300 ng/mL URN PHENCYCLIDINE (PCP) (test code = PHENCURN) <25 ng/ mL URN METHADONE (test code = METHAURN) <300 ng/mL Urine Source? Clean Catch- CT ABD PELVIS [id number] 14:59:00 Name: ADRIA EDWARDS [facility] : 1960 Age/S: 59 / M [address] [facility] Unit #: [id number] Loc: [place] [address] Phys: Leodan Plata MD Acct: [id number] Di s Date: Status: REG ER PHONE #: [phone] Exam Date: 11/05/2019 1437 FAX #: Reason: abd distension, jaundice EXAMS: CPT CODE: [id number] CT ABD PELVIS W/CONT [id number] EXAM: CT ABDOMEN/PELVIS W ITH CONTRAST HISTORY: Abdominal pain, jaundice TECHN IQUE: Helical imaging was performed diaphragm through the symphysis with m ultiplanar reformations obtained. IV CONTRAST: 100cc Omnipaque 300 GI CO NTRAST: No DOSE: CT imaging performed at this location uti lexii radiation dose optimization technique which includes one or more of the followin) Automated exposure control; 2) Adjustment of the mA and/ or kV according to patient's size; 3) Use of iterative reconstruction techniques COMPARISON: None FINDINGS: LOWER CHEST: The visualized lung bases are clear. Visualized heart is unremarkable. SOLID ORGANS: Diffuse hypoattenuation of the liver relative to the spleen, fatty infiltration. Liver measures up to 21.5 cm in craniocaudal dimension. No focal liver lesions. Common Bile duct is poorly visualized however within these limits it appears to measure ap proximately 7.2 mm on series 601 image 75. No definite intrahepatic biliar y ductal dilation. Mildly distended gallbladder measures up to 10 cm. The spleen, pancreas, and adrenal glands are normal in appearance. Both kidneys demonstrate normal corticomedullary phase of enhancement. No renal/ureteral calculus, hydronephrosis, mass, or cyst is apparent. BOWEL: Moderate bowel wall thickening and edema involving the transverse portion of the duodenum as demonstrated on series 2 image 65 a nd series 5 image 53. There is also bowel wall thickening of the transvers e colon and descending colon. Mild surrounding fat stranding is also noted . Normal appendix. No signs of obstruction.] PERITONEUM: Small vol ume ascites seen within the pelvis and bilateral upper quadrants. RETROPERITONEUM: Mild atherosclerotic changes of the abdominal aorta. PAGE 1 Signed Report (CONTINUED) Na me: JERRYADRIA [facility] : Age/S: 59 / M [address] [facility] Unit #: [id number] Loc: [place] [address] Phys: Skye Plata MD Acct: [id number] Dis Da te: Status: REG ER PHONE #: [phone] Exam Date: 11/05/2019 4242 FAX #: [phone] Reason: abd distension, jaundice EXAMS: CPT CODE: [id number] CT ABD PELVIS W/C ONT 97434 <Continued> Moderately prominent portal lymph node on series 2 image 46 measures up to 1.2 cm. PELVIS: The visualized urinary bladder wall is normal thickness. Postsurgical changes related to prostatectomy and bilateral pelvic lymph node dissection. MUSCULOSKELETAL: No acute osseous abnormality is seen. No destructive lytic or blastic osseous lesion is noted. SOFT TISSUES: No ventral abdominal hernia. No anasarca. Bilateral fat- containing inguinal hernias. IMPRESSION: 1. Moderate bowel wall thickening and edema involving portions of small and large bowel most prominent at the transverse portion of the duodenum. No discrete mass is visualized. Findings may represent combination of duodenitis and colitis. Inflammatory bowel disease should also be considered. 2. Nonspecific mildly distended gallbladder with probable prominence of the common bile duct measuring up to 7.2 cm. No gallstones are visualized. Further characterization with MRCP may be of benefit. 3. Hepatomegaly with hepatic steatosis. 4. Portal vein adenopathy measures up to 1.2 cm, likely reactive in etiology. 5. Small volume abdominal ascites. SL: [id number] E lectronically Signed by Alden Francois M.D. on 11/05/2019 at 1459 Reported and signed by: Alden Francois M.D. CC: Skye Plata MD Technologist:Mariluz Rojas RT(R),CT CTDI: DLP: Trnscb Date/Time: 11/05/2019 (7620) [email or web address] Orig Print D/T: S: 11/05/2019 (0575) PAGE 2 Signed Report BASIC METABOLIC [id number] 13:25:00* Test Item Value Reference Range Interpretation Comments SODIUM (test code = NA) 131 mmol/L 136-145 L POTASSIUM (test code = K) 3.5 mmol/L 3.5-5.1 N CHLORIDE (test code = CL) 94.0 mmol/L 98-107 L CARBON DIOXIDE (test code = CO2) 26.0 mmol/L 21-32 N ANION GAP (test code = GAP) 14.5 10-20 N GLUCOSE (test code = GLU) 84 mg/dL 74-106 N BLOOD UREA NITROGEN (test code = BUN) 6 mg/dL 7-18 L GLOMERULAR FILTRATION RATE (test code = GFR) > 60 mL/min >=60 Estimated GFR by using Modified MDRD formula.Chronic kidney disease is defined as either kidney damageor GFR <60 mL/min/1.73 m2 for >3 months. CREATININE (test code = CREAT) 0.80 mg/dL 0.7-1.3 N BUN/CREATININE RATIO (test code = BUN/CREA) 7.4 10-20 L CALCIUM (test code = CA) 8.1 mg/dL 8.5-10.1 L HEPATIC FUNCTION [id number] 13:25:00* Test Item Value Reference Range Interpretation Comments TOTAL PROTEIN (test code = PROT) 5.2 gram/dL 6.4-8.2 L ALBUMIN (test code = ALB) 2.0 g/dL 3.4-5.0 L GLOBULIN (test code = GLOB) 3.2 gram/dL 2.7-4.2 N ALBUMIN/GLOBULIN RATIO (test code = A/G) 0.6 0.75-1.50 L BILIRUBIN TOTAL (test code = BILT) 18.70 mg/dL 0.0-1.0 H BILIRUBIN DIRECT (test code = BILD) 15.36 mg/dL 0.0-0.20 H SGOT/AST (test code = AST) 328 IUnit/L 15-37 H SGPT/ALT (test code = ALT) 106 IUnit/L 12-78 H ALKALINE PHOSPHATASE TOTAL (test code = ALKP) 520 IUnit/L 45-117 H Note change in reference range due to change in reagent. [id number] 13:25:00* Test Item Value Reference Range Interpretation Comments LIPASE (test code = LIP) 252 U/L 73.0-393.0 N [id number] 13:25:00* Test Item Value Reference Range Interpretation Comments TROPONIN-I (test code = TROPI) <0.015 ng/mL 0-0.045 N [id number] 13:25:00* Test Item Value Reference Range Interpretation Comments ALCOHOL (test code = ALC) 284 mg/dL 0.0-3.0 H -- INTERPRETIVE DATA NOTE: POSITIVE SCREENING RESULTS SHOULD BE CONSIDERED PRESUMPTIVE.WHEN COLLECTED FOR MEDICAL PURPOSES ONLY. SPECIMEN WILL NOTBE COLLECTED BY CHAIN OF CUSTODY.IF A CONFIRMATION OF POSITIVE RESULTS IS DESIRED, ACONFIRMATION TEST MUST BE REQUESTED BY THE PHYSICIAN AT ANADDITIONAL CHARGE TO THE PATIENT. PROTHROMBIN [id number] 13:24:00* Test Item Value Reference Range Interpretation Comments PROTHROMBIN TIME PATIENT (test code = PTP) 12.2 seconds 9.0-14.0 N INTERNATIONAL NORMAL RATIO (test code = INR) 1.1 0.8-1.2 N The therapeutic range for oral anticoagulant therapy formost indications is an international normalized ratio (INR)of between 2.0 and 3.0. The recommended therapeutic INRrange for various clinical situations is listed below: Clinical Situation INR range Pulmonary e mbolism treatment (2.0-3.0)Venous thrombosis treatmentVenous thrombosis prophylaxis (high risk surgery)Prevention of systemic embolism from: Acute myocardial infarction Valvular heart disease Atrial fibrillation Mechanical prosthetic heart valves (2.5-3.5) IS PATIENT ON ANTICOAGULANTS? NTHROMBOPLASTIN TIME [id number] 13:24:00* Test Item Value Reference Range Interpretation Comments THROMBOPLASTIN TIME PARTIAL (test code = PTT) 40.1 seconds 23.0-37. 0 H IS PATIENT ON ANTICOAGULANTS? NBASIC METABOLIC [id number] 13:22:00* Test Item Value Reference Range Interpretation Comments SODIUM (test code = NA) 131 mmol/L 136-145 L POTASSIUM (test code = K) 3.5 mmol/L 3.5-5.1 N CHLORIDE (test code = CL) 94.0 mmol/L 98-107 L CARBON DIOXIDE (test code = CO2) 26.0 mmol/L 21-32 N ANION GAP (test code = GAP) 14.5 10-20 N GLUCOSE (test code = GLU) 84 mg/dL 74-106 N BLOOD UREA NITROGEN (test code = BUN) 6 mg/dL 7-18 L GLOMERULAR FILTRATION RATE (test code = GFR) > 60 mL/min >=60 Estimated GFR by using Modified MDRD formula.Chronic kidney disease is defined as either kidney damageor GFR <60 mL/min/1.73 m2 for >3 months. CREATININE (test code = CREAT) 0.80 mg/dL 0.7-1.3 N BUN/CREATININE RATIO (test code = BUN/CREA) 7.4 10-20 L CALCIUM (test code = CA) 8.1 mg/dL 8.5-10.1 L HEPATIC FUNCTION [id number] 13:22:00* Test Item Value Reference Range Interpretation Comments TOTAL PROTEIN (test code = PROT) 5.2 gram/dL 6.4-8.2 L ALBUMIN (test code = ALB) 2.0 g/dL 3.4-5.0 L GLOBULIN (test code = GLOB) 3.2 gram/dL 2.7-4.2 N ALBUMIN/GLOBULIN RATIO (test code = A/G) 0.6 0.75-1.50 L BILIRUBIN TOTAL (test code = BILT) 18.70 mg/dL 0.0-1.0 H BILIRUBIN DIRECT (test code = BILD) 15.36 mg/dL 0.0-0.20 H SGOT/AST (test code = AST) 328 IUnit/L 15-37 H SGPT/ALT (test code = ALT) 106 IUnit/L 12-78 H ALKALINE PHOSPHATASE TOTAL (test code = ALKP) 520 IUnit/L 45-117 H Note change in reference range due to change in reagent. [id number] 13:22:00* Test Item Value Reference Range Interpretation Comments LIPASE (test code = LIP) 252 U/L 73.0-393.0 N [id number] 13:22:00* Test Item Value Reference Range Interpretation Comments TROPONIN-I (test code = TROPI) <0.015 ng/mL 0-0.045 N [id number] 13:22:00* Test Item Value Reference Range Interpretation Comments ALCOHOL (test code = ALC) mg/dL 0-3 [id number] 13:17:00* Test Item Value Reference Range Interpretation Comments AMMONIA (test code = AMM) < 10 umol/L 11-32 L BASIC METABOLIC [id number] 13:11:00* Test Item Value Reference Range Interpretation Comments SODIUM (test code = NA) 131 mmol/L 136-145 L POTASSIUM (test code = K) 3.5 mmol/L 3.5-5.1 N CHLORIDE (test code = CL) 94.0 mmol/L 98-107 L CARBON DIOXIDE (test code = CO2) mmol/L 21-32 ANION GAP (test code = GAP) 10-20 GLUCOSE (test code = GLU) mg/dL 74-106 BLOOD UREA NITROGEN (test code = BUN) mg/dL 7-18 GLOMERULAR FILTRATION RATE (test code = GFR) mL/min >=60 CREATININE (test code = CREAT) mg/dL 0.7-1.3 BUN/CREATININE RATIO (test code = BUN/CREA) 10-20 CALCIUM (test code = CA) mg/dL 8.5-10.1 HEPATIC FUNCTION [id number] 13:11:00* Test Item Value Reference Range Interpretation Comments TOTAL PROTEIN (test code = PROT) gram/dL 6.4-8.2 ALBUMIN (test code = ALB) g/dL 3.4-5.0 GLOBULIN (test code = GLOB) gram/dL 2.7-4.2 ALBUMIN/GLOBULIN RATIO (test code = A/G) 0.75-1.50 BILIRUBIN TOTAL (test code = BILT) mg/dL 0.0-1.0 BILIRUBIN DIRECT (test code = BILD) mg/dL 0.0-0.20 SGOT/AST (test code = AST) IUnit/L 15-37 SGPT/ALT (test code = ALT) IUnit/L 12-78 ALKALINE PHOSPHATASE TOTAL (test code = ALKP) IUnit/L 45-117 [id number] 13:11:00* Test Item Value Reference Range Interpretation Comments LIPASE (test code = LIP) U/L 73.0-393.0 [id number] 13:11:00* Test Item Value Reference Range Interpretation Comments TROPONIN-I (test code = TROPI) ng/mL 0-0.045 [id number] 13:11:00* Test Item Value Reference Range Interpretation Comments ALCOHOL (test code = ALC) mg/dL 0-3 CBC W/O [id number] 13:08:00* Test Item Value Reference Range Interpretation Comments WHITE BLOOD CELL (test code = WBC) 14.2 K/mm3 4.5-12.5 H RED BLOOD CELL (test code = RBC) 4.24 mill/mm3 4.0-5.8 N HEMOGLOBIN (test code = HGB) 13.2 gram/dL 13.0-17.5 N HEMATOCRIT (test code = HCT) 36.7 % 42.0-52.0 L MEAN CELL VOLUME (test code = MCV) 86.6 fL 80-98 N MEAN CELL HGB (test code = MCH) 31.1 picogram 27.0-33.0 N MEAN CELL HGB CONCETRATION (test code = MCHC) 36.0 gram/dL 33.0-36. 0 N RED CELL DISTRIBUTION WIDTH (test code = RDW) 20.4 % 11.6-16. 2 H PLATELET COUNT (test code = PLT) 131 K/mm3 150-450 L MEAN PLATELET VOLUME (test code = MPV) 11.7 fL 6.7-11.0 H CBC W/O [id number] 13:04:00* Test Item Value Reference Range Interpretation Comments WHITE BLOOD CELL (test code = WBC) K/mm3 4.5-12.5 RED BLOOD CELL (test code = RBC) mill/mm3 4.0-5.8 HEMOGLOBIN (test code = HGB) 13.2 gram/dL 13.0-17.5 N HEMATOCRIT (test code = HCT) % 42.0-52.0 MEAN CELL VOLUME (test code = MCV) fL 80-98 MEAN CELL HGB (test code = MCH) picogram 27.0-33.0 MEAN CELL HGB CONCETRATION (test code = MCHC) gram/dL 33.0-36. 0 RED CELL DISTRIBUTION WIDTH (test code = RDW) % 11.6-16. 2 PLATELET COUNT (test code = PLT) K/mm3 150-450 MEAN PLATELET VOLUME (test code = MPV) fL 6.7-11.0 - XR CHEST 1 [id number] 13:03:00 FAX: Skye Plata MD [phone] [place]: St: PRE Name: ADRIA GAINES [facility] : [birth year] Age/S: 59/M [address] [facility] Unit #: [id number] Loc: [place] [address] Phys: Skye Plata MD Acct: [id number] Dis Date: Status: PRE ER PHONE #: [phone] Exam Date: 11/05/2019 1251 FAX #: [phone] Reason: ABDOMINAL PAIN EXAMS: CPT CODE: [id number] XR CHEST 1 V [id number] REASON FOR EXAM: ABDOMINAL PAIN Exam Order Date: 11/05/2019 12:41 PM Ordering Merlin Delaney: Skye Plata MD PROCEDURE: - XR CHEST 1 V COMPARISON: 09/20/2015 FINDINGS: Lines/Tubes: None Lung volumes are diminished which widens the cardiomediastinal silhouette and crowds the bronchovascular structures. There is no ple ural effusion or pneumothorax. Pulmonary vascularity is within normal limi ts. Cardiomediastinal silhouette and mediastinal contours are unch anged when accounting for differences in technique. Musculo skeletal structures and visualized portions of the upper abdomen are also unchanged. IMPRESSION: Low lung volumes. No acut e cardiopulmonary process. Location: [facility] Electroni celeste Signed by Alden Francois M.D. on 11/05/2019 at 1303 R eported and signed by: Alden Francois M.D. CC: Skye Plata MD Technologist: Shyla Paredes RT(R) Trnscrd Date/Time/By: 11/05/2019 (9155) : By: [email or web address] Orig Print D/T: S: 11/05/2019 (7201) PAGE 1 Signed Report
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
[2019-11-25] MEDS ORDERED: PIPER-TAZ 3.375 GM 50 ML IV ONE (14:15)
[2019-11-25] MEDS ORDERED: SODIUM CHLORIDE 0.9% 50ML 50 ML ONE (14:34)
[2019-11-25] MEDS ORDERED: IOPAMIDOL 370 MG/ML 200 ML INFUS..BTL INJ ONE (14:35)
[2019-11-25 15:46] LABS: CLARITY,URINE CLOUDY (CLEAR); COLOR,URINE BROWN (YELLOW); KETONES,URINE NEGATIVE (NEGATIVE); LEUKOCYTE ESTERASE ,URINE NEGATIVE (NEGATIVE); NITRITE,URINE NEGATIVE (NEGATIVE); PROTEIN,URINE DIPSTICK NEGATIVE (NEGATIVE); URINE UROBILINOGEN 1 mg/dL (0.2 - 1)
[2019-11-25 15:47] LABS: BILIRUBIN,URINE SMALL (NEGATIVE)
--- NOTE | 2019-11-25 15:54 | Diagnostic Imaging Report ---
EXAM: CT Chest, Abdomen and Pelvis WITH intravenous contrast INDICATION: Tachycardia, abdominal pain COMPARISON: Chest radiograph earlier the same day TECHNIQUE: The chest, abdomen and pelvis were scanned utilizing a multidetector helical scanner from the thoracic inlet to the pubic symphysis following administration of IV contrast. Coronal and sagittal reformations were obtained. The chest CT was performed with pulmonary embolism protocol. Abdomen and pelvis CT was scanned in portal venous phase. IV CONTRAST: 100cc Isovue 370 ORAL CONTRAST: Water COMPLICATIONS: None RADIATION DOSE: Total DLP: 1319 mGy*cm Dose modulation, iterative reconstruction, and/or weight based adjustment of the mA/kV was utilized to reduce the radiation dose to as low as reasonably achievable. FINDINGS: LINES/ TUBES: None. PULMONARY ARTERIES: No filling defect is identified within the pulmonary arteries to the segmental level. The subsegmental pulmonary arteries are not well opacified. Main pulmonary artery measures 2.8 cm in diameter. LUNGS AND AIRWAYS: The central airways are patent. No focal consolidation or pulmonary edema. Right lower lobe dependent subsegmental atelectasis. PLEURA: The pleural spaces are clear. HEART AND MEDIASTINUM: The thyroid gland is normal. No mediastinal, hilar or axillary lymphadenopathy. The heart is normal in size.. There is no pericardial effusion. HEPATOBILIARY: Diffuse hepatic steatosis. No focal liver lesion. Unremarkable gallbladder. No biliary ductal dilation SPLEEN: No splenomegaly. PANCREAS: No focal masses or ductal dilatation. ADRENALS: No adrenal nodules. KIDNEYS/URETERS: No hydronephrosis, stones, or solid mass lesions. PELVIC ORGANS/BLADDER: Status post prostatectomy. PERITONEUM / RETROPERITONEUM: Moderate ascites in the abdomen and pelvis. LYMPH NODES: No lymphadenopathy. VESSELS: Mild atherosclerotic calcifications of the nonaneurysmal abdominal aorta and major branches. GI TRACT: Diverticulosis without CT evidence of diverticulitis. No abnormal bowel thickening. No bowel obstruction. BONES AND SOFT TISSUES: No acute osseous injury. No suspicious lytic or blastic lesions. Degenerative changes of the visualized spine. IMPRESSION: No pulmonary embolism. No focal pneumonia or pulmonary edema. Diffuse hepatic steatosis. Moderate ascites in the abdomen and pelvis. Diverticulosis without CT evidence of diverticulitis. Signed by: Barney Jason MD on 11/25/2019 3:50 PM
[2019-11-25] MEDS: MORPHINE SULFATE INJ 4 MG/ML INJ 1ML IV PRN ×2 (17:14→21:42)
[2019-11-25] MEDS: ONDANSETRON HCL INJ 2MG/ML 2ML 2 MG/ML VIAL IV PRN ×2 (17:14→21:41)
--- NOTE | 2019-11-25 19:06 | NUR ---
1st attempt to call report
[2019-11-25 19:58] VITALS: BP 145/97
[2019-11-25 20:04] VITALS: BP 145/97
--- NOTE | 2019-11-25 20:09 | NUR ---
patient is a new admit that arrived via stretcher. patient is awake and taking. patient has been transferred into the bed. bed is in the lowest position and call light is within reach. will continue to monitor patient.
[2019-11-25 20:16] VITALS: BP 145/97
[2019-11-25] MEDS ORDERED: SODIUM CHLORIDE 0.9% 250ML 250 ML ONE (21:29)
[2019-11-25] MEDS: PIPER-TAZ 3.375 GM 50 ML IV SCH (21:41)
[2019-11-25 23:57] VITALS: BP 136/96
[2019-11-26 05:37] VITALS: BP 140/98
[2019-11-26 06:17] LABS: BASOPHILS # (AUTO) 0.1 (0.0-0.1); BASOPHILS % 1.6 % (0.0-1.0); EOSINOPHILS # (AUTO) 0.5 (0.0-0.4); EOSINOPHILS % 6.1 % (0.0-6.0); HEMATOCRIT 30.9 % (38.2-49.6); HEMOGLOBIN 10.3 g/dL (14.0-18.0); LYMPHOCYTES # (AUTO) 1.2 (1.0-3.2); LYMPHOCYTES % 14.8 % (18.0-39.1); MEAN CORPUSCULAR HEMOGLOBIN 33.6 pg (28-32); MEAN CORPUSCULAR HGB CONC 33.3 g/dL (31-35); MEAN CORPUSCULAR VOLUME 100.7 fL (81-99); MONOCYTES % 12.4 % (4.4-11.3); NEUTROPHILS # (AUTO) 5.4 (2.1-6.9); NEUTROPHILS % 64.5 % (38.7-80.0); PLATELET COUNT 205 x10e3/uL (140-360); RED BLOOD COUNT 3.07 x10e6/uL (4.3-5.7); RED CELL DISTRIBUTION WIDTH 17.5 % (11.7-14.4)
[2019-11-26] MEDS: PIPER-TAZ 3.375 GM 50 ML IV SCH ×3 (06:23→22:33)
[2019-11-26 06:43] LABS: ALANINE AMINOTRANSFERASE 49 IU/L (0-55); ALBUMIN 2.6 g/dL (3.5-5.0); ALKALINE PHOSPHATASE 209 IU/L (40-150); ANION GAP 11.6 mmol/L (8-16); BLOOD UREA NITROGEN 7 mg/dL (7-26); BUN/CREATININE RATIO 10 (6-25); CALCIUM 7.7 mg/dL (8.4-10.2); CARBON DIOXIDE 27 mmol/L (22-29); CHLORIDE 102 mmol/L (98-107); CREATININE, SERUM 0.69 mg/dL (0.72-1.25); EST GLOMERULAR FILTRATION RATE > 60 ML/MIN (60-); GLUCOSE 78 mg/dL (74-118); POTASSIUM 3.6 mmol/L (3.5-5.1); SODIUM 137 mmol/L (136-145)
[2019-11-26] MEDS: MORPHINE SULFATE INJ 4 MG/ML INJ 1ML IV PRN ×2 (07:54→19:20)
[2019-11-26 08:00] VITALS: BP 130/92
[2019-11-26] MEDS ORDERED: FLOMAX0.4 MG PO (08:06)
[2019-11-26] MEDS ORDERED: HYDROCHLOROTH12.5 MG (08:10)
[2019-11-26] MEDS ORDERED: PREVACID30 MG (08:10)
[2019-11-26] MEDS ORDERED: LISINOPRIL20 MG PO (08:10)
--- NOTE | 2019-11-26 10:41 | NUR ---
PT HAS NO HEALTH INSURANCE, PROVIDED SELF PAY PACKET WITH COMM[employer], INCLUDING APPLICATION FOR GOLD CARD TO ACCESS HEALTHCARE THROUGH [facility].
[2019-11-26 12:00] VITALS: BP 135/95
[2019-11-26 16:00] VITALS: BP 145/98
[2019-11-26] MEDS: PANTOPRAZOLE SOD 40 MG TABEC PO SCH (17:49)
[2019-11-26] MEDS: ONDANSETRON HCL INJ 2MG/ML 2ML 2 MG/ML VIAL IV PRN (19:20)
[2019-11-26 20:06] VITALS: BP 143/96
[2019-11-26] MEDS ORDERED: FOLIC ACID 5 MG/ML VIAL ONE ×2 (22:15→22:18)
[2019-11-26] MEDS ORDERED: MULTIVITAMINS INJECTION ONE ×2 (22:17→22:18)
[2019-11-26] MEDS ORDERED: THIAMINE HCL INJ 100 MG/ML 2ML VIAL ONE (22:18)
[2019-11-26] MEDS ORDERED: SODIUM CHLORIDE 0.9% 1000ML 1,000 ML ONE (22:20)
[2019-11-26] MEDS: MULTIVITAMINS- 12 INJECTION 10 ML, FOLIC ACID MDV 5 MG, THIAMINE HCL INJ 100 MG in SODI... IV SCH (22:33)
[2019-11-27] VITALS (7 sets, daily range): BP systolic 123–140; BP diastolic 80–98
[2019-11-27] MEDS: PIPER-TAZ 3.375 GM 50 ML IV SCH ×3 (05:27→20:24)
[2019-11-27 07:23] LABS: BASOPHILS # (AUTO) 0.1 (0.0-0.1); BASOPHILS % 1.6 % (0.0-1.0); EOSINOPHILS # (AUTO) 0.4 (0.0-0.4); HEMATOCRIT 28.4 % (38.2-49.6); HEMOGLOBIN 9.3 g/dL (14.0-18.0); LYMPHOCYTES # (AUTO) 1.3 (1.0-3.2); LYMPHOCYTES % 17.9 % (18.0-39.1); MEAN CORPUSCULAR HEMOGLOBIN 34.6 pg (28-32); MEAN CORPUSCULAR HGB CONC 32.7 g/dL (31-35); MEAN CORPUSCULAR VOLUME 105.6 fL (81-99); MONOCYTES # (AUTO) 0.9 (0.2-0.8); MONOCYTES % 13.1 % (4.4-11.3); NEUTROPHILS # (AUTO) 4.3 (2.1-6.9); NEUTROPHILS % 60.7 % (38.7-80.0); PLATELET COUNT 190 x10e3/uL (140-360); RED BLOOD COUNT 2.69 x10e6/uL (4.3-5.7); RED CELL DISTRIBUTION WIDTH 16.7 % (11.7-14.4)
[2019-11-27 07:36] LABS: PROTHROMBIN TIME 13.7 seconds (11.9-14.5)
[2019-11-27 07:37] LABS: PARTIAL THROMBOPLASTIN TIME 34.3 seconds (23.8-35.5)
[2019-11-27 07:50] LABS: ALANINE AMINOTRANSFERASE 39 IU/L (0-55); ALBUMIN 2.5 g/dL (3.5-5.0); ALBUMIN/GLOBULIN RATIO 1.1 (0.8-2.0); ALKALINE PHOSPHATASE 190 IU/L (40-150); ANION GAP 11.4 mmol/L (8-16); BLOOD UREA NITROGEN 5 mg/dL (7-26); BUN/CREATININE RATIO 7 (6-25); CALCIUM 7.7 mg/dL (8.4-10.2); CARBON DIOXIDE 28 mmol/L (22-29); CHLORIDE 103 mmol/L (98-107); CREATININE, SERUM 0.71 mg/dL (0.72-1.25); EST GLOMERULAR FILTRATION RATE > 60 ML/MIN (60-); GLUCOSE 76 mg/dL (74-118); POTASSIUM 3.4 mmol/L (3.5-5.1); SODIUM 139 mmol/L (136-145)
[2019-11-27] MEDS: PANTOPRAZOLE SOD 40 MG TABEC PO SCH (09:57)
[2019-11-27] MEDS: TAMSULOSIN HCL 0.4 MG CAP PO SCH (09:58)
[2019-11-27] MEDS: MORPHINE SULFATE INJ 4 MG/ML INJ 1ML IV PRN (09:58)
[2019-11-27] MEDS: LISINOPRIL 20 MG TAB PO SCH (09:58)
[2019-11-27] MEDS ORDERED: HYDRALAZINE HCL 20 MG/ML VIAL IV PRN (17:30)
[2019-11-27] MEDS ORDERED: ACETAMINOPHEN 325 MG TAB PO PRN (17:30)
[2019-11-27] MEDS: MORPHINE SULFATE 2 MG/ML SYR 1ML IV PRN ×2 (17:57→23:28)
[2019-11-27] MEDS: FUROSEMIDE 20 MG TAB PO SCH (17:57)
[2019-11-27] MEDS: MULTIVITAMINS- 12 INJECTION 10 ML, FOLIC ACID MDV 5 MG, THIAMINE HCL INJ 100 MG in SODI... IV SCH (20:24)
[2019-11-28] VITALS (8 sets, daily range): BP systolic 129–156; BP diastolic 92–107
[2019-11-28] MEDS: FUROSEMIDE 20 MG TAB PO SCH (06:02)
[2019-11-28] MEDS: MORPHINE SULFATE 2 MG/ML SYR 1ML IV PRN ×3 (06:02→20:54)
[2019-11-28] MEDS: PIPER-TAZ 3.375 GM 50 ML IV SCH ×3 (06:02→21:41)
[2019-11-28 07:22] LABS: BASOPHILS # (AUTO) 0.1 (0.0-0.1); BASOPHILS % 1.2 % (0.0-1.0); EOSINOPHILS # (AUTO) 0.4 (0.0-0.4); HEMATOCRIT 30.2 % (38.2-49.6); HEMOGLOBIN 9.8 g/dL (14.0-18.0); LYMPHOCYTES # (AUTO) 1.3 (1.0-3.2); LYMPHOCYTES % 14.3 % (18.0-39.1); MEAN CORPUSCULAR HEMOGLOBIN 33.3 pg (28-32); MEAN CORPUSCULAR HGB CONC 32.5 g/dL (31-35); MEAN CORPUSCULAR VOLUME 102.7 fL (81-99); MONOCYTES # (AUTO) 1.2 (0.2-0.8); MONOCYTES % 13.1 % (4.4-11.3); NEUTROPHILS # (AUTO) 6.2 (2.1-6.9); NEUTROPHILS % 66.8 % (38.7-80.0); PLATELET COUNT 203 x10e3/uL (140-360); RED BLOOD COUNT 2.94 x10e6/uL (4.3-5.7); RED CELL DISTRIBUTION WIDTH 16.3 % (11.7-14.4)
[2019-11-28 07:43] LABS: ALANINE AMINOTRANSFERASE 37 IU/L (0-55); ALBUMIN 2.6 g/dL (3.5-5.0); ALKALINE PHOSPHATASE 160 IU/L (40-150); ANION GAP 12.4 mmol/L (8-16); BLOOD UREA NITROGEN < 5 mg/dL (7-26); CALCIUM 7.6 mg/dL (8.4-10.2); CARBON DIOXIDE 27 mmol/L (22-29); CHLORIDE 103 mmol/L (98-107); CREATININE, SERUM 0.66 mg/dL (0.72-1.25); EST GLOMERULAR FILTRATION RATE > 60 ML/MIN (60-); GLUCOSE 82 mg/dL (74-118); MAGNESIUM 1.3 MG/DL (1.3-2.1); POTASSIUM 3.4 mmol/L (3.5-5.1); SODIUM 139 mmol/L (136-145)
[2019-11-28 07:45] LABS: BUN/CREATININE RATIO 8 (6-25)
[2019-11-28 08:06] LABS: THYROID STIMULATING HORMONE 1.773 uIU/mL (0.350-4.940)
[2019-11-28 08:08] LABS: FERRITIN 703.72 ng/mL (21.81-274.66)
[2019-11-28] MEDS: LISINOPRIL 20 MG TAB PO SCH (09:41)
[2019-11-28] MEDS: PANTOPRAZOLE SOD 40 MG TABEC PO SCH (09:41)
[2019-11-28] MEDS: SPIRONOLACTONE 25 MG TAB PO SCH ×2 (09:41→16:55)
[2019-11-28] MEDS: TAMSULOSIN HCL 0.4 MG CAP PO SCH (09:41)
[2019-11-28] MEDS ORDERED: ALBUMIN 25% 12.5GM 50ML 100 ML IV ONE (11:19)
--- NOTE | 2019-11-28 11:35 | NUR ---
Received report from KEEGAN Felix in radiology she reports 4000cc removed from paracentesis and fluid is being sent to lab,
--- NOTE | 2019-11-28 11:50 | Diagnostic Imaging Report ---
PROCEDURE: Ultrasound-guided paracentesis Procedural Personnel Attending physician(s): Barney Jason MD Pre-procedure diagnosis: Ascites Post-procedure diagnosis: Unchanged Indication: Ascites with pain or pressure symptoms Additional clinical history: None Complications: No immediate complications. IMPRESSION: Ultrasound-guided paracentesis with drainage of 4000 mL of serous fluid. Plan: Resume care by clinical team. PROCEDURE SUMMARY: - Limited abdominal ultrasound - Ultrasound-guided paracentesis - Additional procedure(s): None PROCEDURE DETAILS: Pre-procedure Consent: Informed consent for the procedure including risks, benefits and alternatives was obtained and time-out was performed prior to the procedure. Preparation: The site was prepared and draped using maximal sterile barrier technique including cutaneous antisepsis. Anesthesia/sedation Level of anesthesia/sedation: None Initial abdominal ultrasound Initial abdominal ultrasound was performed. Findings: Large ascites. A safe window for paracentesis was identified. Paracentesis Local anesthesia was administered. The peritoneal cavity was accessed and fluid return confirmed position. Ascites was drained. The catheter was then removed, and a sterile bandage was applied. Paracentesis access technique: Real-time ultrasound guidance. Catheter placed: 5Fr Yueh Post-drainage ultrasound: No visible ascites Additional Details Additional description of procedure: None Equipment details: None Specimens removed: Abdominal fluid Estimated blood loss (mL): Minimal (<10cc) Standardized report: [email or web address] Attestation Signer name: Barney Jason MD I attest that I was present for the entire procedure. I reviewed the stored images and agree with the report as written. Signed by: Barney Jason MD on 11/28/2019 11:47 AM
[2019-11-28] MEDS: FUROSEMIDE 40 MG TAB PO SCH (12:50)
[2019-11-28 13:34] LABS: BODY FLUID TYPE PERITONEAL
[2019-11-28 13:35] LABS: BODY FLUID APPEARANCE SL.CLOUDY; BODY FLUID COLOR YELLOW; RBC,BODY FLUID 23 cells/uL; WBC,BODY FLUID 78 cells/uL
[2019-11-28 13:54] LABS: LYMPHOCYTES,BODY FLUID 49 %; MONO/MACROPHG,BODY FLUID 31 %; NEUTROPHILS,BODY FLUID 20 %
[2019-11-28] MEDS: MULTIVITAMINS- 12 INJECTION 10 ML, FOLIC ACID MDV 5 MG, THIAMINE HCL INJ 100 MG in SODI... IV SCH (18:41)
[2019-11-28] MEDS ORDERED: MAGNESIUM SULFATE 2GM/50ML 50 ML IV ONE (20:15)
[2019-11-28] MEDS: ONDANSETRON HCL INJ 2MG/ML 2ML 2 MG/ML VIAL IV PRN (20:54)
[2019-11-28] MEDS: LORATADINE 10 MG TAB PO SCH (21:09)
--- NOTE | 2019-11-28 22:20 | Progress Note ---
DATE: CONSULTING PHYSICIAN: Dr. Serjio Youssef with Gastroenterology. SUBJECTIVE: The patient is supine in bed, head of bed elevated. Right shoulder and back ache with ice pack on the right shoulder. No abdominal pain. Last BM was 11/26, which was large. No new complaints. He underwent paracentesis today. OBJECTIVE: VITAL SIGNS: Temperature 98.9, pulse 105, blood pressure 156/107, respirations 19, oxygen saturation 99% on room air. GENERAL: No acute distress. LUNGS: Clear to auscultation. Respiratory pattern even and unlabored. HEENT: EOMI. Sclerae anicteric. Oral mucosa moist and pink. Oropharynx clear. NECK: Supple. CARDIOVASCULAR: Regular rate and rhythm. No murmur. Normal saline banana bag infusing at 50 mL an hour into a peripheral IV. ABDOMEN: Bowel sounds positive. Soft, distended. EXTREMITIES: No pitting edema. No clubbing, cyanosis, or signs of DVT. NEUROLOGICAL: GCS 15. Nonfocal. LABORATORY DATA: WBC 9.26, hemoglobin 9.8, hematocrit 30.2, platelets 203. Sodium 139, potassium 3.4, chloride 103, CO2 of 27, BUN less than 5, creatinine 0.66, estimated GFR greater than 60, glucose 82. Calcium 7.6, magnesium 1.3, total bilirubin 4.7, AST 83, ALT 37, alkaline phosphatase 160, total protein 5.1, albumin 2.6, TSH 1.773, vitamin B12 1037, iron 43, TIBC 195, percent saturation 22, transferrin 139, ferritin 703.72. Hemoglobin A1c 3.8%. Peritoneal fluid yellow, slightly cloudy. WBC 78, RBC 23, total cell count 100, neutrophils 20, lymphocytes 49, monocytes 31. Hepatitis panel remains pending. Final culture results of the paracentesis, fluid is pending. No growth from blood cultures x2 collected 11/24. PROCEDURES: The patient underwent ultrasound-guided paracentesis today, in which 4 L were removed. ASSESSMENT/PLAN: 1. Ascites, status post ultrasound-guided paracentesis on 11/28/2019. Await final culture and sensitivity results from the ascites fluid. Monitor blood pressure. 2. Cirrhosis, ETOH induced with ascites. Continue banana bag, low-sodium cardiac diet. GI following. 3. Acute hepatitis panel pending. 4. Hypertension, controlled. Continue lisinopril. 5. Acute hypomagnesemia. Magnesium level 1.3, repleted with 3 g of magnesium sulfate IV once. 6. Gastroesophageal reflux disease. Continue Protonix. 7. Prophylaxis. Protonix and SCDs. Inpatient billing code [id number]. Time spent 35 minutes. Dictated by Melo Bautista, CELESTINO Yuriy Winston MD HWP/MODL /[id number]
[2019-11-28] MEDS ORDERED: MAGNESIUM SULF 1GRAM/DEXTROSE 100 ML IV ONE (22:30)
[2019-11-29] VITALS: BP 117/91
[2019-11-29 04:00] VITALS: BP 133/95
[2019-11-29 05:05] LABS: BASOPHILS # (AUTO) 0.1 (0.0-0.1); BASOPHILS % 1.1 % (0.0-1.0); EOSINOPHILS # (AUTO) 0.3 (0.0-0.4); EOSINOPHILS % 4.2 % (0.0-6.0); HEMATOCRIT 28.7 % (38.2-49.6); HEMOGLOBIN 9.4 g/dL (14.0-18.0); LYMPHOCYTES % 26.2 % (18.0-39.1); MEAN CORPUSCULAR HEMOGLOBIN 33.7 pg (28-32); MEAN CORPUSCULAR HGB CONC 32.8 g/dL (31-35); MEAN CORPUSCULAR VOLUME 102.9 fL (81-99); MONOCYTES # (AUTO) 0.6 (0.2-0.8); MONOCYTES % 8.6 % (4.4-11.3); NEUTROPHILS # (AUTO) 4.4 (2.1-6.9); NEUTROPHILS % 59.4 % (38.7-80.0); PLATELET COUNT 184 x10e3/uL (140-360); RED BLOOD COUNT 2.79 x10e6/uL (4.3-5.7); RED CELL DISTRIBUTION WIDTH 15.9 % (11.7-14.4)
[2019-11-29] MEDS: PIPER-TAZ 3.375 GM 50 ML IV SCH ×2 (05:15→14:47)
[2019-11-29 05:24] LABS: MAGNESIUM 1.7 MG/DL (1.3-2.1); PHOSPHORUS 2.8 MG/DL (2.3-4.7)
[2019-11-29 05:46] LABS: ALANINE AMINOTRANSFERASE 27 IU/L (0-55); ALBUMIN 2.7 g/dL (3.5-5.0); ALBUMIN/GLOBULIN RATIO 1.2 (0.8-2.0); ALKALINE PHOSPHATASE 130 IU/L (40-150); ANION GAP 10.4 mmol/L (8-16); BLOOD UREA NITROGEN < 5 mg/dL (7-26); CALCIUM 7.7 mg/dL (8.4-10.2); CARBON DIOXIDE 27 mmol/L (22-29); CHLORIDE 106 mmol/L (98-107); CREATININE, SERUM 0.68 mg/dL (0.72-1.25); EST GLOMERULAR FILTRATION RATE > 60 ML/MIN (60-); GLUCOSE 81 mg/dL (74-118); POTASSIUM 3.4 mmol/L (3.5-5.1); SODIUM 140 mmol/L (136-145)
[2019-11-29 05:47] LABS: BUN/CREATININE RATIO 7 (6-25)
[2019-11-29] MEDS: MORPHINE SULFATE 2 MG/ML SYR 1ML IV PRN (07:25)
[2019-11-29 08:00] VITALS: BP 135/105
[2019-11-29] MEDS: LORATADINE 10 MG TAB PO SCH (09:30)
[2019-11-29] MEDS: FUROSEMIDE 40 MG TAB PO SCH (09:30)
[2019-11-29] MEDS: LISINOPRIL 20 MG TAB PO SCH (09:30)
[2019-11-29] MEDS: TAMSULOSIN HCL 0.4 MG CAP PO SCH (09:30)
[2019-11-29] MEDS: PANTOPRAZOLE SOD 40 MG TABEC PO SCH (09:30)
[2019-11-29] MEDS: SPIRONOLACTONE 25 MG TAB PO SCH ×2 (09:30→16:45)
[2019-11-29 12:00] VITALS: BP 137/107
[2019-11-29] MEDS ORDERED: FUROSEMIDE40 MG PO (12:31)
[2019-11-29] MEDS ORDERED: PROTONIX40 MG/ML PO (12:31)
[2019-11-29] MEDS ORDERED: ALDACTONE25 MG PO (12:31)
[2019-11-29] MEDS ORDERED: POTASSIUM CHLORIDE 20 MEQ TAB CR PO ONE (13:00)
[2019-11-29 16:00] VITALS: BP 125/98
--- NOTE | 2019-11-29 17:50 | NUR ---
Discharge instructions and prescriptions given to the patient, he verbalized understanding. IV's removed from the right FA
--- NOTE | 2019-11-30 12:59 | Discharge Summary ---
ADMISSION DIAGNOSES: Alcoholic cirrhosis with ascites, hypertension, gastroesophageal reflux disease. DISCHARGE DIAGNOSES: Alcoholic cirrhosis with ascites, hypertension, gastroesophageal reflux disease. HISTORY: Cirrhosis of the liver due to EtOH, hypertension. SURGICAL HISTORY: Noncontributory. FAMILY HISTORY: Noncontributory. SOCIAL HISTORY: The patient admits to drinking 3 to 4 beers a week. HOSPITAL COURSE: A 59-year-old male admits with complaints of abdominal distention and shortness of breath. He is alcoholic and drinks 3 to 4 beers per week. He reported having alcoholic cirrhosis. On admission, chest x-ray showed low lung volumes. CT of the abdomen and pelvis showed no PE, no pneumonia or edema. Moderate ascites in the abdomen and pelvis. The patient then had an ultrasound-guided paracentesis and 4000 mL of serous fluid was pulled. Blood cultures were negative. Abdominal fluid was negative. Hepatitis panel is pending at the time of discharge. Coronavirus was negative. The patient was advised to refrain from alcohol use. He was given new prescriptions for Lasix, Aldactone, and Protonix. He will follow up with primary care in 1 to 2 weeks and GI in 1 to 2 weeks. The patient understands instructions and agrees to plan. Vital signs stable, the patient afebrile. Dictated by Belle Wilson NP Yuriy Winston MD KINDRA/MODL /[id number]
--- OUTSIDE RECORDS SUMMARY | 2019-12-04 13:48 | XMS REPORT | Clinical Summary ---
Author Author [facility] Organization [facility] Address Unknown Phone Unavailable Care Team Providers Care Per Diem Registered Nurse Name Role Phone Shay Snowden MD PCP Pcp, No PCP Unavailable Allergies No Known Allergies Medications End Date [...] Added automatically from request for ruben rowell [id number] Fractured tooth due to trauma with complication [...] 05/27/2018 relatives? How often do you attend yarsani or religion More than 4 ti mes per year 05/27/2018 services? Do you belong to any clubs or organizations such Yes 05/27/2018 as yarsani groups, unions, fraternal or athletic groups, or [...] Dates Group [employer] SELF-PA[employer] SELF-PAY xxxxxx 2018- [phone] [address] [place] [address] Advance Directives Date Inactivated Comments Code Status Date Activated 07/31/2017 11:17 PM Full Code 07/29/2017 7:33 PM
--- OUTSIDE RECORDS SUMMARY | 2019-12-04 13:49 | XMS REPORT | Continuity of Care Document ---
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 No visible ascites Additio nal Details Additional description of procedure: None Equipment details: Non e Specimens removed: Abdominal fluid Estimated blood loss (mL): Minimal (< 10cc) Standardized report: SIR_Paracentesis_v3 Attestation Signer name: Agustin Arvizu MD I attest that I was present for the entire procedure. I review ed the stored images and agree with the report as written. 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 IMPRESSION : Ultrasound-guided paracentesis with drainage of 4000 mL of serous fluid. Plan: Resume care by clinical team. PROCEDURE SUMMARY: - Limited abdominal u ltrasound - Ultrasound-guided paracentesis - Additional procedure(s): None PROCEDURE DETAILS: Pre-procedure Consent: Informed consent for the pr ocedure including risks, benefits and alternatives was obtained and time-out w as performed prior to the procedure. Preparation: The site was prepared and dr aped using maximal sterile barrier technique including cutaneous antisepsis. Anesthesia/sedation Level of anesthesia/sedation: None Initial abdomi nal ultrasound Initial abdominal ultrasound was performed. Findings: Large a scites. A safe window for paracentesis was identified. Paracentesis Local anesthesia was administered. The peritoneal cavity was accessed and fluid ret urn confirmed position. Ascites was drained. The catheter was then removed, an d a sterile bandage was applied. Paracentesis access technique: Real-time ultr asound guidance. Catheter placed: 5Fr Cynthia Post-drainage ultrasound: No visi ble ascites Additional Details Additional description of procedure: None Equipment details: None Specimens removed: Abdominal fluid Estimated blood loss (mL): Minimal (<10cc) Standardized report: SIR_Paracentesis_v3 Attestation Signer name: Agustin Arvizu MD I attest that I was present for the entire procedure. I reviewed the stored images and agree with the report as written. Signed by: Agustin Arvizu MD on 11/28/2019 11:47 AM Dictated By: AGUSTIN ARVIZU MD 1147 Transcribed By: SAPNA on 11/28/19 1147 COPY TO: PAPI DE ASSISTANT PROFESSOR OF MARINE BIOLOGY Specimen source identification of body [id number] 11:18:00* Test Item Value Reference Range Interpretation Comments Body Fluid Type (test code = 26143-6) PERITONEAL [facility] CenterEvaluation of color of body fluid 2019-11-28 11:18:00* Test Item Value Reference Range Interpretation Comments Body Fluid Color (test code = 6824-7) YELLOW [facility] CenterDetermination of appearance of body fluid 2019-11-28 11:18:00* Test Item Value Reference Range Interpretation Comments Body Fluid Appearance (test code = 9335-1) SL.CLOUDY [facility] body fluid leukocytes count (number/volume)2019-11-28 11:18:00* Test Item Value Reference Range Interpretation Comments Body Fluid WBC (test code = 6743-9) 78 [facility] body fluid erythrocytes count (number/volume)2019-11-28 11:18:00* Test Item Value Reference Range Interpretation Comments Body Fluid RBC (test code = 6741-3) 23 [facility] fluid neutrophils/100 vizaggjese7165-41-01 11:18:00* Test Item Value Reference Range Interpretation Comments Body Fluid Neutrophils (test code = 59970-3) 20 [facility] CenterBody fluid lymphocyte lcogt9855-19-28 11:18:00* Test Item Value Reference Range Interpretation Comments Body Fluid Lymphocytes (test code = 40110456) 49 [facility] CenterBody fluid monocyte fndaw8980-99-59 11:18:00* Test Item Value Reference Range Interpretation Comments Body Fluid Monocytes (test code = 80983-7) 31 [facility] CenterTotal cell inljt8806-63-92 11:18:00* Test Item Value Reference Range Interpretation Comments Body Fluid Total Cells Counted (test code = 21676-7) 100 [facility] or plasma thyrotropin measurement by detection limit <= 0.005 miu/l (units/volume)2019-11-28 06:45:00* Test Item Value Reference Range Interpretation Comments Thyroid Stimulating Hormone (TSH) (test code = 66160-0) 1.773 0.350-4.940 [facility] CenterAutomated reticulocyte count as percentage of total msvxilcvyehm9246-41-87 06:43:00* Test Item Value Reference Range Interpretation Comments Percent Reticulocyte Count (test code = 54460-0) 3.1 0.8-2 .2 [facility] CenterFluoroscopic procedure less than one hour cfleheir0202-35-76 06:43:00* Test Item Value Reference Range Interpretation Comments Hemoglobin A1c Percent (test code = Hemoglobin A1c Percent) 3.8 4.0-7.0 [facility] plasma iron measurement (mass/volume)2019-11-28 06:43:00* Test Item Value Reference Range Interpretation Comments Iron Level (test code = 2498-4) 43 65-175 [facility]ere[facility] or plasma iron binding capacity measurement (mass/volume)2019-11-28 06:43:00* Test Item Value Reference Range Interpretation Comments Total Iron Binding Capacity (test code = 2500-7) 195 261-4 78 [facility] or plasma iron saturation measurement (mass fraction)2019-11-28 06:43:00* Test Item Value Reference Range Interpretation Comments Percent Iron Saturation (test code = 2502-3) 22 15-50 [facility] or plasma transferrin measurement (mass/volume)2019-11-28 06:43:00* Test Item Value Reference Range Interpretation Comments Transferrin (test code = 3034-6) 139 174-364 [facility]ere[facility] or plasma ferritin measurement (mass/volume)2019-11-28 06:43:00* Test Item Value Reference Range Interpretation Comments Ferritin (test code = 2276-4) 703.72 21.81-274.66 [facility] CenterBlood cobalamin (vitamin B12) measurement (mass/volume)2019-11-28 06:43:00* Test Item Value Reference Range Interpretation Comments Vitamin B12 Level (test code = 25672-6) 1037 213816 [facility] or plasma folate measurement (mass/volume)2019-11-28 06:43:00* Test Item Value Reference Range Interpretation Comments Folate (test code = 2284-8) >20.0 >3.0 A serum folate concentration of less than 3.1 ng/mL isconsidered to represent cl inical deficiency.Performed at: [facility] [id number] Director: Choco Olson MD, Phone: [phone] Medical CenterProthrombin time (PT) in platelet poor plasma by coagulation jufnu8349-45-26 05:55:00* Test Item Value Reference Range Interpretation Comments Prothrombin Time (test code = 5902-2) 13.7 11.9-14.5 [facility] CenterINR in Platelet poor plasma by Coagulation mbful7698-98-23 05:55:00* Test Item Value Reference Range Interpretation Comments Prothromb Time International Ratio (test code = 6301-6) 1.00 Oral Anticoagulant Therapy INR Values:1. Low Intensity Therapy 1.5 - 2.02 . Moderate Intensity Therapy 2.0 - 3.03. High Intensity Therapy(1) 2.5 - 3. 54. High Intensity Therapy(2) 3.0 - 4.05. Panic Value INR > 5.0 [facility] CenterActivated partial thromboplastin time (aPTT) in platelet poor plasma by coagulation lttzs7804-52-35 05:55:00* Test Item Value Reference Range Interpretation Comments Activated Partial Thromboplast Time (test code = 64621-8) 34.3 23.8-35.5 [facility] or plasma hepatitis A virus IgM antibody detection by mtholfionuf9956-54-57 05:55:00* Test Item Value Reference Range Interpretation Comments Hepatitis A IgM Antibody (test code = 39153-7) Negative Negativ e [facility]ererum or plasma hepatitis B virus surface antigen detection by gbmtnqcdwlj9468-15-73 05:55:00* Test Item Value Reference Range Interpretation Comments Hepatitis B Surface Antigen (test code = 5196-1) Negative Negat anai [facility]ererum or plasma hepatitis B virus core IgM antibody detection by lwrwfrzkmqn3063-47-77 05:55:00* Test Item Value Reference Range Interpretation Comments Hepatitis B Core IgM Antibody (test code = 67969-3) Negative Ne gative [facility] Centererum hepatitis C virus antibody hnlhvbour5937-13-65 05:55:00* Test Item Value Reference Range Interpretation Comments Hepatitis C Antibody (test code = 80857-0) <0.1 0.0-0.9 Negative: < 0.8 Indeterminate: 0.8 - 0.9 Positive: > 0.9 The CDC recommends that a positive HCV antibody result be followed up with a HCV Nucleic Acid Amplification test (218167).Performed at: [address] [id number] Director: Choco Olson MD, Phone: [phone] Medical CenterCT ABDOMEN/PELVIS [id number] 15:39:00 [address] [address] Patient Name: ADRIA EDWARDS MR #: [id number] : 1960 Age/Sex: 59/M Req #: [id number] Adm Physician: Ordered by: JUNE BELL DO Report #: [id number] Location: ER Room/Bed: Procedure: [id number] CT/CT ABDOMEN /PELVIS W Exam Date: 11/25/19 Exam Time: 151 REPORT STATUS: Signed EXAM: CT Chest, Abdomen and Pelvis WITH intravenous contrast INDICATION: Tachycardia, abd ominal pain COMPARISON: Chest radiograph earlier the same day TECHNIQU E: The chest, abdomen and pelvis were scanned utilizing a multidetector helica l scanner from the thoracic inlet to the pubic symphysis following administrat ion of IV contrast. Coronal and sagittal reformations were obtained. The chest CT was performed with pulmonary embolism protocol. Abdomen and pelvis CT was scanned in portal venous phase. IV CONTRAST: 100cc Isovue 370 ORAL C ONTRAST: Water COMPLICATIONS: None RADIATION DOSE: Total DLP: 1319 mGy*cm Dose modulation, iterative reconstruction, and/or weight based adjustment of the mA/kV was utilized to reduce the radiation dose to as low as reasonably achievable. FINDINGS: LINES/ TUBES: None. PULM ONARY ARTERIES: No filling defect is identified within the pulmonary arteries to the segmental level. The subsegmental pulmonary arteries are not well opaci fied. Main pulmonary artery measures 2.8 cm in diameter. LUNGS AND AIRWAYS: The central airways are patent. No focal consolidation or pulmonary edema. R ight lower lobe dependent subsegmental atelectasis. PLEURA: The pleural s paces are clear. HEART AND MEDIASTINUM: The thyroid gland is normal. No me diastinal, hilar or axillary lymphadenopathy. The heart is normal in size.. T here is no pericardial effusion. HEPATOBILIARY: Diffuse hepatic stea tosis. No focal liver lesion. Unremarkable gallbladder. No biliary ductal dila tion SPLEEN: No splenomegaly. PANCREAS: No focal masses or ductal dila tation. ADRENALS: No adrenal nodules. KIDNEYS/URETERS: No hydronephrosis, stones, or solid mass lesions. PELVIC ORGANS/BLADDER: Status post prostatecto my. PERITONEUM / RETROPERITONEUM: Moderate ascites in the abdomen and pelvi s. LYMPH NODES: No lymphadenopathy. VESSELS: Mild atherosclerotic calcificat ions of the nonaneurysmal abdominal aorta and major branches. GI TRACT: D iverticulosis without CT evidence of diverticulitis. No abnormal bowel thicken ing. No bowel obstruction. BONES AND SOFT TISSUES: No acute osseous injury. No suspicious lytic or blastic lesions. Degenerative changes of the visualized spine. IMPRESSION: No pulmonary embolism. No focal pneumonia or pulmon marie edema. Diffuse hepatic steatosis. Moderate ascites in the abdomen and p hema. Diverticulosis without CT evidence of diverticulitis. Signed by: Agustin Arvizu MD on 11/25/2019 3:50 PM Dictated By: AGUSTIN ARVIZU MD 155 Transcribed By: TANO HAYES on 11/25/19 155 COPY TO: JUNE BELL DO CT CHEST W 2019-11-25 15:39:00 [address] [address] Patient Name: ADRIA EDWARDS MR #: [id number] : 1960 Age/Sex: 59/M Req #: [id number] Adm Physician: Ordered by: JUNE BELL DO Report #: [id number] Location: ER Room/Bed: Procedure: [id number] CT/CT CHEST W Exam Date: 11/25/19 Exam Time: 151 REPORT STATUS: Signed EXAM: CT Chest, Abdomen and Pelvis WITH intravenous contrast INDICATION: Tachycardia, abdominal pain COMPARISON: Chest radiograph earlier the same day TECHNIQUE: The chest, abdomen and pelvis were scanned utilizing a multidetector helical scanner from the thoracic inlet to the pubic symphysis following administration of IV contrast. Coronal and sagittal reformations were obtained. The chest CT was p erformed with pulmonary embolism protocol. Abdomen and pelvis CT was scanned i n portal venous phase. IV CONTRAST: 100cc Isovue 370 ORAL CONTRAST: Water COMPLICATIONS: None RADIATION DOSE: Total DLP: 13 19 mGy*cm Dose modulation, iterative reconstruction, and/or weight based ad justment of the mA/kV was utilized to reduce the radiation dose to as low as r easonably achievable. FINDINGS: LINES/ TUBES: None. PULMONARY ART ERIES: No filling defect is identified within the pulmonary arteries to the se gmental level. The subsegmental pulmonary arteries are not well opacified. Yomaira n pulmonary artery measures 2.8 cm in diameter. LUNGS AND AIRWAYS: The herson tral airways are patent. No focal consolidation or pulmonary edema. Right lowe r lobe dependent subsegmental atelectasis. PLEURA: The pleural spaces are clear. HEART AND MEDIASTINUM: The thyroid gland is normal. No mediastinal, hilar or axillary lymphadenopathy. The heart is normal in size.. There is no pericardial effusion. HEPATOBILIARY: Diffuse hepatic steatosis. No focal liver lesion. Unremarkable gallbladder. No biliary ductal dilation SPLEEN: No splenomegaly. PANCREAS: No focal masses or ductal dilatation. ADRENALS: No adrenal nodules. KIDNEYS/URETERS: No hydronephrosis, stones, or solid mass lesions. PELVIC ORGANS/BLADDER: Status post prostatectomy. PERITONEUM / RETROPERITONEUM: Moderate ascites in the abdomen and pelvis. LYMP H NODES: No lymphadenopathy. VESSELS: Mild atherosclerotic calcifications of t he nonaneurysmal abdominal aorta and major branches. GI TRACT: Diverticul osis without CT evidence of diverticulitis. No abnormal bowel thickening. No b owel obstruction. BONES AND SOFT TISSUES: No acute osseous injury. No suspi cious lytic or blastic lesions. Degenerative changes of the visualized spine. IMPRESSION: No pulmonary embolism. No focal pneumonia or pulmonary edema. Diffuse hepatic steatosis. Moderate ascites in the abdomen and pelvis. Diverticulosis without CT evidence of diverticulitis. Signed by: Agustin Arvizu MD on 11/25/2019 3:50 PM Dictated By: AGUSTIN ARVIZU MD Electro nically Signed By: AGUSTIN ARVIZU MD on 11/25/19 8102 Transcribed By: SAPNA on 025 COPY TO: JUNE BELL, Urine color dwceevbtygsyx7007-11-99 15:38:00* Test Item Value Reference Range Interpretation Comments Urine Color (test code = 5778-6) BROWN YELLOW [facility] CenterUrine nmawkeo7852-59-49 15:38:00* Test Item Value Reference Range Interpretation Comments Urine Clarity (test code = 50619-5) CLOUDY CLEAR [facility] Centerpecific gravity of Urine by Test strip 2019-11-25 15:38:00* Test Item Value Reference Range Interpretation Comments Urine Specific [place] (test code = 5811-5) 1.025 1.010-1.02 5 [facility] CenterUrine pH measurement by automated test osfcf5864-12-59 15:38:00* Test Item Value Reference Range Interpretation Comments Urine pH (test code = 86188-0) 5.5 5-7 [facility] CenterUrine leukocyte esterase detection by thfewous3950-21-51 15:38:00* Test Item Value Reference Range Interpretation Comments Urine Leukocyte Esterase (test code = 5799-2) NEGATIVE NEGATIVE [facility] CenterUrine nitrite tegyvcbjs9662-51-18 15:38:00* Test Item Value Reference Range Interpretation Comments Urine Nitrite (test code = 15983-7) NEGATIVE NEGATIVE [facility] CenterUrine protein measurement by test strip (mass/volume)2019-11-25 15:38:00* Test Item Value Reference Range Interpretation Comments Urine Protein (test code = 5804-0) NEGATIVE NEGATIVE [facility] CenterUrine glucose bbgptpxuv6729-04-90 15:38:00* Test Item Value Reference Range Interpretation Comments Urine Glucose (UA) (test code = 2349-9) NEGATIVE NEGATIVE [facility] CenterUrine ketones detection by automated test zmmmh6949-03-76 15:38:00* Test Item Value Reference Range Interpretation Comments Urine Ketones (test code = 10431-5) NEGATIVE NEGATIVE [facility] CenterUrine urobilinogen measurement by test strip (mass/volume)2019-11-25 15:38:00* Test Item Value Reference Range Interpretation Comments Urine Urobilinogen (test code = 31024-7) 1 0.2-1 [facility] CenterUrine total bilirubin measurement (mass/volume)2019-11-25 15:38:00* Test Item Value Reference Range Interpretation Comments Urine Bilirubin (test code = 1978-6) SMALL NEGATIVE [facility] CenterUrine erythrocytes pxapskche1904-02-71 15:38:00* Test Item Value Reference Range Interpretation Comments Urine Blood (test code = 95268-3) NEGATIVE NEGATIVE [facility] CenterAutomated urine sediment leukocyte count by microscopy (number/high power field)2019-11-25 15:38:00* Test Item Value Reference Range Interpretation Comments Urine WBC (test code = 5821-4) NONE 0-5 [facility] CenterErythrocytes detection in urine sediment by light xpnzhyczts3628-81-21 15:38:00* Test Item Value Reference Range Interpretation Comments Urine RBC (test code = 49598-7) NONE 0-5 [facility] CenterBacteria detection in urine sediment by light irgvhgebvy7856-58-52 15:38:00* Test Item Value Reference Range Interpretation Comments Urine Bacteria (test code = 08721-7) NONE NONE [facility] CenterEpithelial cells detection in urine sediment by light zhscuovqwc6949-70-65 15:38:00* Test Item Value Reference Range Interpretation Comments Urine Epithelial Cells (test code = 54200-1) NONE NONE [facility] CenterFluoroscopic procedure less than one hour vtbjirzq2060-55-09 14:14:00* Test Item Value Reference Range Interpretation Comments Lactic Acid Level (test code = Lactic Acid Level) 1.9 0.5- 2.0 [facility] CenterBlood msrsccv3163-04-34 14:14:00* Test Item Value Reference Range Interpretation Comments Blood Culture (test code = 77751995) NO GROWTH AFTER 72 HOURS [facility] CenterCHEST SINGLE (PORTABLE)2019-11-25 13:36:00 [facility] [address] [place] [address] Patient Name: ADRIA EDWARDS MR #: [id number] : 1960 Age/Sex: 59/M Req #: [id number] Adm Physician: Ordered by: JUNE BELL DO Report #: [id number] Location: ER Room/Bed: Procedure: [id number] DX/CHEST SING LE (PORTABLE) Exam Date: 11/25/19 Exam Time: 1306 REPORT STATUS: Signed EXAMINATION: CHEST SINGLE (PORTABLE) INDICATION: PA edema COMPARISON: None FINDINGS: LINES/TUBES:EKG leads overlie the chest. LUNGS:The lung volumes are low. Mild bibasilar subsegmental atelectasis. PLEURA:No pleural effusion or pneumothorax. MEDIASTINUM:The cardiomediastinal silhouette appears normal in size and shape. BONES/SOFT TISSUES:No acute osseous inju ry. ABDOMEN:No free air under the diaphragm. IMPRESSION: Low georgette g volumes and mild bibasilar subsegmental atelectasis. No focal pneumonia or p ulmonary edema. Signed by: Agustin Arvizu MD on 11/25/2019 1:36 PM Dicta jorge By: AGUSTIN ARVIZU MD 1336 Transcribed By: SAPNA on 11/25/19 1336 COPY TO: JUNE BELL DO Fluoroscopic procedure less than one hour aruqcbzn8613-53-90 12:52:00* Test Item Value Reference Range Interpretation Comments Coronavirus (PCR) (test code = Coronavirus (PCR)) NOT DETECTED NOTD ETECTED SARS-CoV-2 PCRHologic Aptima SARS-CoV-2 assay is a nucleic amplification test in tended for the qualitative detection of RNA from SARS-CoV-2 from nasopharyngeal (ASSISTANT PROFESSOR OF MARINE BIOLOGY) specimens. It is used under Emergency Use Authorization (EUA) by FDA.A posi tive result is indicative of the presence of SARS-CoV-2 RNA. Clinical correlatio n with patient history and other diagnostic information is necessary to determin e patient infection status.A negative (Not Detected) result does not preclude SA RS-CoV-2 infection. Clinical Correlation with patient history and other diagnost ic information should be used in patient management decisions.Invalid: Unable to generate a valid result on this specimen. Please submit a new specimen for repr at testing oc clinically indicated.Tesing performed by:[facility] Laboratory Services3 [address] [facility] [id number], Dean ricci MD, PhDEastland Memorial HospitalP Udw-cDml3130-86-18 12:00:00* Test Item Value Reference Range Interpretation Comments B-Type Natriuretic Peptide (test code = 29755-0) 57.5 0-100 [facility] Centererum or plasma creatine kinase measurement (enzymatic activity/volume)2019-11-25 12:00:00* Test Item Value Reference Range Interpretation Comments Creatine Kinase (test code = 2157-6) 77 30-200 [facility] Centererum or plasma creatine kinase MB measurement (mass/volume)2019-11-25 12:00:00* Test Item Value Reference Range Interpretation Comments Creatine Kinase MB (test code = 66405-3) 2.70 0-5.0 [facility] by highly sensitive enzyme [id number] 12:00:00* Test Item Value Reference Range Interpretation Comments Troponin I (test code = 25985-8) 0.008 0-0.300 [facility] or plasma lipase measurement (enzymatic activity/volume)2019-11-25 12:00:00* Test Item Value Reference Range Interpretation Comments Lipase (test code = 3040-3) 51 8-78 [facility] [id number] 17:08:00 * Test Item Value Reference Range Interpretation Comments AB HEPATITIS A IGM (test code = [...] with a HCV Nucleic Acid Amplification test (789071).Performed At: [facility] [id number] Choco Hoang MD Ph:[phone] [id number] 16:38:00* Test Item Value Reference Range Interpretation Comments GLUBED (test code = GLUBED) 103 mg/dL 74-106 N Performed by certified chemical recovery operator at [facility] [id number] 11:48:00* Test Item Value Reference Range Interpretation Comments GLUBED (test code = GLUBED) 91 mg/dL 74-106 N Performed by certified chemical recovery operator at [facility] - MRI ABDOMEN W/O [id number] 09:01:00 FAX: Herminio Resendez II, MD [place]: St: [facility] FAX: Skye Plata MD [phone] Name: ADRIA EDWARDS [facility] : 1960 Age/S: 59/M [address] [facility] Unit #: [id number] Loc: [address] [address] Phys: Herminio Resendez II, MD Acct: [id number] Dis Date: Status: ADM IN PHONE #: [phone] Exam Date: 11/07/2019 0854 FAX #: [phone] Reason: eval liver cirrhosis, r/o cholecystitis EXAMS: CPT CODE: [id number] MRI ABDOMEN W/O CONT 34746 MRI abdomen without contrast (MRCP) HISTORY: Concern [...] Pacheco II, MD; Skye Plata MD Technologist: ROSANNA REEDRT - [facility] Date/Time/By: 11/07/2019 (09) : By: [email or web address] Orig Print D/T: S: 11/07/2019 (0904) PAGE 1 Signed Report [id number] 08:01:00* Test Item Value Reference Range Interpretation Comments GLUBED (test code = GLUBED) 100 mg/dL 74-106 N Performed by certified chemical recovery operator at [facility] CBC W/MANUAL [id number] 03:30:00* Test Item Value Reference Range Interpretation [...] IMMAT) 0 % 0-0 N COMPREHENSIVE METABOLIC [id number] 02:57:00* Test Item Value Reference Range Interpretation [...] due to change in reagent. COMPREHENSIVE METABOLIC [id number] 02:48:00* Test Item Value Reference Range Interpretation [...] code = ALKP) IUnit/L 45-117 CBC W/MANUAL [id number] 02:44:00* Test Item Value Reference Range Interpretation [...] MORPHOLOGY (test code = PLTMORPH) CBC W/MANUAL [id number] 02:44:00* Test Item Value Reference Range Interpretation [...] MORPHOLOGY (test code = PLTMORPH) CBC W/MANUAL [id number] 02:44:00* Test Item Value Reference Range Interpretation [...] MORPHOLOGY (test code = PLTMORPH) CBC W/MANUAL [id number] 02:44:00* Test Item Value Reference Range Interpretation [...] MORPHOLOGY (test code = PLTMORPH) CBC W/MANUAL [id number] 02:44:00* Test Item Value Reference Range Interpretation [...] PLTEST) PLATELET MORPHOLOGY (test code = PLTMORPH) [id number] 19:58:00* Test Item Value Reference Range Interpretation Comments GLUBED (test code = GLUBED) 152 mg/dL 74-106 H Performed by certified chemical recovery operator at [facility] [id number] 16:15:00* Test Item Value Reference Range Interpretation Comments GLUBED (test code = GLUBED) 111 mg/dL 74-106 H Per[facility] certified chemical recovery operator [facility]~ [id number] 12:27:00* Test Item Value Reference Range Interpretation Comments GLUBED (test code = GLUBED) 114 mg/dL 74-106 H Performed by certified chemical recovery operator at [facility] [id number] 08:41:00* Test Item Value Reference Range Interpretation Comments GLUBED (test code = GLUBED) 83 mg/dL 74-106 N Performed by certified chemical recovery operator at [facility] CBC W/MANUAL [id number] 03:42:00* Test Item Value Reference Range Interpretation [...] IMMAT) 0 % 0-0 N COMPREHENSIVE METABOLIC [id number] 03:37:00* Test Item Value Reference Range Interpretation [...] due to change in reagent. COMPREHENSIVE METABOLIC [id number] 03:19:00* Test Item Value Reference Range Interpretation [...] code = ALKP) IUnit/L 45-117 CBC W/MANUAL [id number] 03:10:00* Test Item Value Reference Range Interpretation [...] MORPHOLOGY (test code = PLTMORPH) CBC W/MANUAL [id number] 03:10:00* Test Item Value Reference Range Interpretation [...] MORPHOLOGY (test code = PLTMORPH) CBC W/MANUAL [id number] 03:10:00* Test Item Value Reference Range Interpretation [...] MORPHOLOGY (test code = PLTMORPH) CBC W/MANUAL [id number] 03:09:00* Test Item Value Reference Range Interpretation [...] MORPHOLOGY (test code = PLTMORPH) CBC W/MANUAL [id number] 03:09:00* Test Item Value Reference Range Interpretation [...] (test code = PLTMORPH) - US ABDOMEN [id number] 16:58:00 Name: ADRIA EDWARDS [facility] : 1960 Age/S: 59 / M [address] [facility] Unit #: [id number] Loc: [place] [address] Phys: Skye Plata MD Acct: [id number] Dis Date: Status: REG ER PHONE #: [phone] Exam Date: 11/05/2019 1643 FAX #: [phone] Reason: high bili, enlarged CBD on CT EXAMS: CPT CODE: [id number] US ABDOMEN LTD 13077 REASON FOR EXAM: high bili, enlarged CBD [...] 1 Signed Report (CONTINUED) Name: ADRIA EDWARDS [facility] : 1960 Age/S: 59 / M [address] [facility] [id number] Loc: [place] [address] Phys: Merlin Plata MD Acct: [id number] D is Date: Status: REG ER PHONE #: [phone] Exam Date: 11/05/2019 1643 FAX #: [phone] Reason: high bili, enlarged CBD on CT EXAMS: CPT [place]: [id number] [address] <Continued> hydronephrosis: none Ascites/pleural effusions: Mild ascites. IMPRESSION: 1. The common bile duct is not entirely visualized, however visualized portions measure up to 5.5 mm. 2. Hepatomegaly with hepatic steatosis. 3. Gallbladder sludge without definite findings of cholecystitis. 4. Partially visualized t race ascites. Location: at 1658 Reported and si gned by: Alden Francois M.D. CC: Skye Plata MD Technologist: JOHNATHAN TUCKER Trnscb Date/Time: 11/05/2019 (1657) [email or web address] Orig Print D/T: S: 11/05/2019 (1701) Probe: PAGE 2 Signed Report URINALYSIS [id number] 15:52:00* Test Item Value Reference Range Interpretation [...] Urine Source? Clean CatchDRUGS OF ABUSE SCREEN [id number] 15:52:00* Test Item Value Reference Range Interpretation [...] NEGATIVE <300 ng/mL Urine Source? Clean CatchURINALYSIS [id number] 15:36:00* Test Item Value Reference Range Interpretation [...] Urine Source? Clean CatchDRUGS OF ABUSE SCREEN [id number] 15:36:00* Test Item Value Reference Range Interpretation [...] [place]) <300 ng/mL Urine Source? Clean CatchURINALYSIS [id number] 15:33:00* Test Item Value Reference Range Interpretation [...] Urine Source? Clean CatchDRUGS OF ABUSE SCREEN [id number] 15:33:00* Test Item Value Reference Range Interpretation [...] Urine Source? Clean Catch- CT ABD PELVIS [id number] 14:59:00 Name: ADRIA EDWARDS [facility] : 1960 Age/S: 59 / M [address] [facility] #: [id number] Loc: [place] [address] Phys: Leodan Plata MD Acct: [id number] Di s Date: Status: REG ER PHONE #: Exam Date: 11/05/2019 1435 FAX #: [phone] Reason: abd distension, jaundice EXAMS: CPT CODE: [id number] CT ABD PELVIS W/CONT 56231 EXAM: CT ABDOMEN/PELVIS W ITH CONTRAST HISTORY: [...] PAGE 1 Signed Report (CONTINUED) Na me: ADRIA EDWARDS [facility] : Age/S: 59 / M [address] [facility] Unit #: [id number] Loc: [place] [address] Phys: Skye Plata MD Acct: [id number] Dis Da te: Status: REG ER PHONE #: Exam Date: 11/05/2019 1435 FAX #: [phone] Reason: abd distension, jaundice EXAMS: CPT CODE: [id number] CT ABD PELVIS W/C ONT 40088 <Continued> Moderately prominent portal lymph node on [...] etiology. 5. Small volume abdominal ascites. SL: [id number] E lectronically Signed by Alden Francois M.D. on 11/05/2019 at 1459 Reported and signed by: Alden Francois M.D. CC: Skye Plata MD Technologist:Mariluz Rojas RT(R),CT CTDI: DLP: Trnscb Date/Time: 11/05/2019 (1459) [email or web address] Orig Print D/T: S: 11/05/2019 (1830) PAGE 2 Signed Report BASIC METABOLIC [id number] 13:25:00* Test Item Value Reference Range Interpretation [...] CA) 8.1 mg/dL 8.5-10.1 L HEPATIC FUNCTION [id number] 13:25:00* Test Item Value Reference Range Interpretation [...] reference range due to change in reagent. [id number] 13:25:00* Test Item Value Reference Range Interpretation Comments LIPASE (test code = LIP) 252 U/L 73.0-393.0 N [id number] 13:25:00* Test Item Value Reference Range Interpretation Comments TROPONIN-I (test code = TROPI) <0.015 ng/mL 0-0.045 N [id number] 13:25:00* Test Item Value Reference Range Interpretation Comments ALCOHOL (test code = ALC) 284 mg/dL 0.0-3.0 H -- INTERPRETIVE DATA NOTE: POSITIVE SCREENING RESULTS SHOULD BE CONSIDERED PRESUMPTIVE.WHEN COLLECTED FOR MEDICAL PURPOSES ONLY. SPECIMEN WILL NOTBE COLLECTED BY CHAIN OF CUSTODY.IF A CONFIRMATION OF POSITIVE RESULTS IS DESIRED, ACONFIRMATION TEST MUST BE REQUESTED BY THE PHYSICIAN AT ANADDITIONAL CHARGE TO THE PATIENT. PROTHROMBIN [id number] 13:24:00* Test Item Value Reference Range Interpretation [...] (2.5-3.5) IS PATIENT ON ANTICOAGULANTS? NTHROMBOPLASTIN TIME [id number] 13:24:00* Test Item Value Reference Range Interpretation Comments THROMBOPLASTIN TIME PARTIAL (test code = PTT) 40.1 seconds 23.0-37. 0 H IS PATIENT ON ANTICOAGULANTS? NBASIC METABOLIC [id number] 13:22:00* Test Item Value Reference Range Interpretation [...] CA) 8.1 mg/dL 8.5-10.1 L HEPATIC FUNCTION [id number] 13:22:00* Test Item Value Reference Range Interpretation [...] reference range due to change in reagent. [id number] 13:22:00* Test Item Value Reference Range Interpretation Comments LIPASE (test code = LIP) 252 U/L 73.0-393.0 N [id number] 13:22:00* Test Item Value Reference Range Interpretation Comments TROPONIN-I (test code = TROPI) <0.015 ng/mL 0-0.045 N [id number] 13:22:00* Test Item Value Reference Range Interpretation Comments ALCOHOL (test code = ALC) mg/dL 0-3 [id number] 13:17:00* Test Item Value Reference Range Interpretation Comments AMMONIA (test code = AMM) < 10 umol/L 11-32 L BASIC METABOLIC [id number] 13:11:00* Test Item Value Reference Range Interpretation [...] code = CA) mg/dL 8.5-10.1 HEPATIC FUNCTION [id number] 13:11:00* Test Item Value Reference Range Interpretation [...] TOTAL (test code = ALKP) IUnit/L 45-117 [id number] 13:11:00* Test Item Value Reference Range Interpretation Comments LIPASE (test code = LIP) U/L 73.0-393.0 [id number] 13:11:00* Test Item Value Reference Range Interpretation Comments TROPONIN-I (test code = TROPI) ng/mL 0-0.045 [id number] 13:11:00* Test Item Value Reference Range Interpretation Comments ALCOHOL (test code = ALC) mg/dL 0-3 CBC W/O [id number] 13:08:00* Test Item Value Reference Range Interpretation [...] MPV) 11.7 fL 6.7-11.0 H CBC W/O [id number] 13:04:00* Test Item Value Reference Range Interpretation [...] MPV) fL 6.7-11.0 - XR CHEST 1 [id number] 13:03:00 FAX: Skye Plata MD [phone] [place]: St: PRE Name: ADRIA GAINES [facility] : [birth year] Age/S: 59/M [address] [facility] Unit #: [id number] Loc: [place] [address] Phys: Skye Plata MD Acct: [id number] Dis Date: Status: PRE ER PHONE #: [phone] Exam Date: 11/05/2019 1255 FAX #: [phone] Reason: ABDOMINAL PAIN EXAMS: CPT CODE: [id number] XR CHEST 1 V 07766 REASON FOR EXAM: ABDOMINAL PAIN Exam Order Date: 11/05/2019 12:41 PM Ordering M .D.: Skye Plata MD PROCEDURE: - XR CHEST [...] volumes. No acut e cardiopulmonary process. Location: [facility] celeste Signed by Alden Francois M.D. on 11/05/2019 at 1303 R eported and signed by: Alden Francois M.D. CC: Skye Plata MD Technologist: Shyla Paredes RT(R) Trnscrd Date/Time/By: 11/05/2019 (3894) : By: [email or web address] Orig Print D/T: S: 11/05/2019 (0802) PAGE 1 Signed Report
== END 2019-11-29 18:07 | disposition home or self-care (01) | DRG 434 ==
LOC: ER 12:50 → ERHOLD 16:13 → MED/SURG2 19:25
PROVIDERS: ADMIT Internal Medicine; ATTEND Internal Medicine
PROC: 0W9G3ZZ Drainage of Peritoneal Cavity, Percutaneous Approach (ICD-10-PCS; principal; 2019-11-28)
DX: K70.31 Alcoholic cirrhosis of liver with ascites (principal); E80.6 Other disorders of bilirubin metabolism; I10 Essential (primary) hypertension; K21.9 Gastro-esophageal reflux disease without esophagitis; F10.10 Alcohol abuse, uncomplicated; R16.1 Splenomegaly, not elsewhere classified; E83.42 Hypomagnesemia; Z11.59 Encounter for screening for other viral diseases
CPT/HCPCS: 36415; 49083; 71045; 71260; 74177; 74470; 80053; 81001; 82550; 82553; 82607; 82728; 82746; 82948; 83036; 83540; 83605; 83690; 83735; 83880; 84100; 84443; 84466; 84484; 85025; 85045; 85610; 85730; 87040; 87070; 87205; 88112; 88305; 89051; 93005; 97139; 99284; J2270; J2405; J2543; J3411; J3475; J7030; J7050; Q9967; U0002

== ENCOUNTER 2021-01-04 04:22 | Emergency (ER) | payer OTHER ==
[~2021-01-04] VITALS: Ht 172.7 cm; Wt 81.6 kg
[~2021-01-04 04:22] MED LIST: ALDACTONE25 MG PO; FLOMAX0.4 MG PO; FUROSEMIDE40 MG PO; HYDROCHLOROTH12.5 MG; LISINOPRIL20 MG PO; PREVACID30 MG; PROTONIX40 MG/ML PO
[2021-01-04] MEDS ORDERED: SODIUM CHLORIDE 0.9% 1000ML 1,000 ML IV STA (04:27)
[2021-01-04 04:40] LABS: BASOPHILS # (AUTO) 0.1 (0.0-0.1); BASOPHILS % 1.8 % (0.0-1.0); EOSINOPHILS # (AUTO) 0.1 (0.0-0.4); EOSINOPHILS % 1.4 % (0.0-6.0); HEMATOCRIT 40.6 % (38.2-49.6); HEMOGLOBIN 13.3 g/dL (14.0-18.0); LYMPHOCYTES # (AUTO) 2.3 (1.0-3.2); LYMPHOCYTES % 28.9 % (18.0-39.1); MEAN CORPUSCULAR HEMOGLOBIN 31.4 pg (28-32); MEAN CORPUSCULAR HGB CONC 32.8 g/dL (31-35); MEAN CORPUSCULAR VOLUME 95.8 fL (81-99); MONOCYTES # (AUTO) 1.2 (0.2-0.8); MONOCYTES % 14.8 % (4.4-11.3); NEUTROPHILS # (AUTO) 4.1 (2.1-6.9); NEUTROPHILS % 52.7 % (38.7-80.0); PLATELET COUNT 245 x10e3/uL (140-360); RED BLOOD COUNT 4.24 x10e6/uL (4.3-5.7); RED CELL DISTRIBUTION WIDTH 13.2 % (11.7-14.4)
[2021-01-04 04:51] LABS: INR 0.85; PROTHROMBIN TIME 12.3 seconds (11.9-14.5)
[2021-01-04 04:55] LABS: CLARITY,URINE CLEAR (CLEAR); COLOR,URINE YELLOW (YELLOW); KETONES,URINE NEGATIVE (NEGATIVE); LEUKOCYTE ESTERASE ,URINE NEGATIVE (NEGATIVE); NITRITE,URINE NEGATIVE (NEGATIVE); PROTEIN,URINE DIPSTICK 1+ (NEGATIVE); URINE UROBILINOGEN 0.2 mg/dL (0.2 - 1)
[2021-01-04 04:57] LABS: B-TYPE NATRIURETIC PEPTIDE2 < 5.0 pg/mL (0-100)
[2021-01-04 05:00] LABS: ALBUMIN 3.7 g/dL (3.5-5.0); ALBUMIN/GLOBULIN RATIO 1.2 (0.8-2.0); ANION GAP 19.4 mmol/L (8-16); CALCIUM 8.7 mg/dL (8.4-10.2); CREATININE, SERUM 1.81 mg/dL (0.72-1.25); POTASSIUM 4.4 mmol/L (3.5-5.1)
[2021-01-04 05:02] LABS: BACTERIA,URINE FEW /HPF; EPITHELIAL CELLS,URINE FEW /LPF; RBC,URINE 0-5 /HPF (0-5)
[2021-01-04 05:06] LABS: CREATINE KINASE MB 2.8 ng/mL (0-5.0)
[2021-01-04] MEDS ORDERED: MULTIVITAMINS- 12 INJECTION 10 ML, FOLIC ACID MDV 1 MG, THIAMINE HCL INJ 100 MG in SODI... IV ONE (06:00)
[2021-01-04 08:13] VITALS: BP 139/97
== END 2021-01-04 08:18 | disposition home or self-care (01) ==
LOC: ER 04:27
DX: R53.1 Weakness (principal); N28.9 Disorder of kidney and ureter, unspecified; E86.0 Dehydration; F10.129 Alcohol abuse with intoxication, unspecified; I10 Essential (primary) hypertension; Z20.822 Contact with and (suspected) exposure to COVID-19
CPT/HCPCS: 36415; 71045; 80053; 80320; 81001; 82140; 82550; 82553; 83605; 83690; 83880; 84484; 85025; 85610; 87040; 93005; 99284; J3411; J7030; U0002

== ENCOUNTER 2021-09-08 16:07 | Emergency (ER) | payer OTHER ==
[~2021-09-08] VITALS: Ht 172.7 cm; Wt 81.6 kg
[2021-09-08] MEDS ORDERED: SODIUM CHLORIDE 0.9% 1000ML 1,000 ML IV STA (16:10)
[2021-09-08] MEDS ORDERED: DICYCLOMINE HCL 20 MG/2 ML VIAL IM ONE (16:15)
[2021-09-08] MEDS ORDERED: ONDANSETRON HCL INJ 2MG/ML 2ML 2 MG/ML VIAL IV PRN (16:15)
[2021-09-08 16:26] LABS: BASOPHILS # (AUTO) 0.1 (0.0-0.1); BASOPHILS % 0.8 % (0.0-1.0); EOSINOPHILS # (AUTO) 0.1 (0.0-0.4); EOSINOPHILS % 1.7 % (0.0-6.0); HEMATOCRIT 44.1 % (38.2-49.6); HEMOGLOBIN 14.5 g/dL (14.0-18.0); LYMPHOCYTES # (AUTO) 1.6 (1.0-3.2); LYMPHOCYTES % 19.6 % (18.0-39.1); MEAN CORPUSCULAR HEMOGLOBIN 33.8 pg (28-32); MEAN CORPUSCULAR HGB CONC 32.9 g/dL (31-35); MEAN CORPUSCULAR VOLUME 102.8 fL (81-99); MONOCYTES # (AUTO) 0.9 (0.2-0.8); MONOCYTES % 10.2 % (4.4-11.3); NEUTROPHILS # (AUTO) 5.6 (2.1-6.9); NEUTROPHILS % 67.5 % (38.7-80.0); PLATELET COUNT 155 x10e3/uL (140-360); RED BLOOD COUNT 4.29 x10e6/uL (4.3-5.7); RED CELL DISTRIBUTION WIDTH 12.3 % (11.7-14.4)
[2021-09-08] MEDS ORDERED: ONDANSETRON HCL INJ 2MG/ML 2ML 2 MG/ML VIAL ONE (16:27)
[2021-09-08] MEDS ORDERED: SODIUM CHLORIDE 0.9% 1000ML 1,000 ML ONE (16:27)
[2021-09-08 16:48] LABS: ALBUMIN 3.6 g/dL (3.5-5.0); ALBUMIN/GLOBULIN RATIO 0.9 (0.8-2.0); CALCIUM 9.3 mg/dL (8.4-10.2); CREATININE, SERUM 0.89 mg/dL (0.72-1.25)
[2021-09-08] MEDS ORDERED: DICYCLOMINE HCL20 MG PO (16:55)
[2021-09-08] MEDS ORDERED: ONDANSETRON ODT4 MG PO (16:55)
[2021-09-08 18:10] VITALS: BP 118/85
== END 2021-09-08 18:14 | disposition home or self-care (01) ==
LOC: ER 16:10
DX: R19.7 Diarrhea, unspecified (principal); R11.0 Nausea
CPT/HCPCS: 36415; 80053; 83690; 85025; 99284; J0500; J2405; J7030

== ENCOUNTER → 2022-03-24 | Outpatient (CLI) | payer OTHER ==
[~2022-03-24] MED LIST changes: +DICYCLOMINE HCL20 MG PO; +IBUPROFEN600 MG PO; +ONDANSETRON ODT4 MG PO
== END ==
LOC: MRI 15:05
PROVIDERS: ATTEND Specialist
DX: M17.11 Unilateral primary osteoarthritis, right knee (principal); S83.411A Sprain of medial collateral ligament of right knee, initial encounter; M10.9 Gout, unspecified; M76.51 Patellar tendinitis, right knee

== ENCOUNTER 2022-04-18 10:20 | Inpatient (IN) | payer OTHER ==
[~2022-04-18] VITALS: Ht 172.7 cm; Wt 79.4 kg
[2022-04-18 11:05] LABS: BASOPHILS # (AUTO) 0.2 (0.0-0.1); BASOPHILS % 0.7 % (0.0-1.0); EOSINOPHILS # (AUTO) 0.7 (0.0-0.4); EOSINOPHILS % 3.3 % (0.0-6.0); HEMATOCRIT 40.3 % (38.2-49.6); HEMOGLOBIN 13.3 g/dL (14.0-18.0); LYMPHOCYTES # (AUTO) 1.9 (1.0-3.2); LYMPHOCYTES % 9.4 % (18.0-39.1); MEAN CORPUSCULAR HEMOGLOBIN 33.7 pg (28-32); MONOCYTES # (AUTO) 1.9 (0.2-0.8); MONOCYTES % 9.1 % (4.4-11.3); NEUTROPHILS # (AUTO) 15.7 (2.1-6.9); NEUTROPHILS % 77.1 % (38.7-80.0); PLATELET COUNT 116 x10e3/uL (140-360); RED BLOOD COUNT 3.95 x10e6/uL (4.3-5.7); RED CELL DISTRIBUTION WIDTH 15.6 % (11.7-14.4)
[2022-04-18 11:07] LABS: INR 1.26
[2022-04-18 11:08] LABS: PARTIAL THROMBOPLASTIN TIME 38.8 seconds (23.8-35.5)
[2022-04-18 11:18] LABS: ALANINE AMINOTRANSFERASE 37 IU/L (0-55); ALBUMIN 2.7 g/dL (3.5-5.0); ALBUMIN/GLOBULIN RATIO 0.6 (0.8-2.0); ALKALINE PHOSPHATASE 374 IU/L (40-150); BLOOD UREA NITROGEN < 5 mg/dL (7-26); CALCIUM 8.6 mg/dL (8.4-10.2); CARBON DIOXIDE 26 mmol/L (22-29); CHLORIDE 96 mmol/L (98-107); CREATINE KINASE 114 IU/L (30-200); CREATININE, SERUM 0.75 mg/dL (0.72-1.25); GLUCOSE 100 mg/dL (74-118); MAGNESIUM 1.2 MG/DL (1.3-2.1); SODIUM 135 mmol/L (136-145)
[2022-04-18 11:21] LABS: BUN/CREATININE RATIO 7 (6-25)
[2022-04-18 11:32] LABS: B-TYPE NATRIURETIC PEPTIDE2 60.5 pg/mL (0-100)
[2022-04-18 11:36] LABS: CLARITY,URINE CLEAR (CLEAR); COLOR,URINE YELLOW (YELLOW); KETONES,URINE NEGATIVE (NEGATIVE); LEUKOCYTE ESTERASE ,URINE NEGATIVE (NEGATIVE); NITRITE,URINE NEGATIVE (NEGATIVE); PROTEIN,URINE DIPSTICK NEGATIVE (NEGATIVE); URINE UROBILINOGEN 2 mg/dL (0.2 - 1)
[2022-04-18 11:40] LABS: HYALINE CASTS >15 (0-1); MUCUS,URINE MODERATE (RARE)
[2022-04-18 11:41] LABS: BACTERIA,URINE FEW /HPF; EPITHELIAL CELLS,URINE FEW /LPF; RBC,URINE 0-5 /HPF (0-5); WBC,URINE (MAN) 0-5 /HPF (0-5)
[2022-04-18] MEDS ORDERED: IOPAMIDOL 370 MG/ML 100 ML INFUS..BTL INJ ONE (11:46)
[2022-04-18 11:49] LABS: LIPASE 88 U/L (8-78)
[2022-04-18] MEDS ORDERED: MAGNESIUM SULFATE 2GM/50ML 50 ML IV ONE ×2 (13:30→20:00)
[2022-04-18] MEDS ORDERED: POTASSIUM CHLORIDE 20 MEQ TAB CR PO ONE (13:30)
[2022-04-18] MEDS ORDERED: SODIUM CHLORIDE 0.9% 1000ML 1,000 ML IV STA (14:09)
[2022-04-18] MEDS ORDERED: ONDANSETRON HCL INJ 2MG/ML 2ML 2 MG/ML VIAL IV PRN (14:15)
[2022-04-18 17:53] VITALS: BP 120/82
[2022-04-18 19:03] LABS: CREATINE KINASE MB 4.9 ng/mL (0-5.0)
[2022-04-18 19:15] VITALS: BP 109/80
[2022-04-18 20:00] VITALS: BP 109/80
[2022-04-18] MEDS ORDERED: HYDRALAZINE HCL 20 MG/ML VIAL IV PRN (20:15)
[2022-04-18] MEDS: MULTIVITAMINS- 12 INJECTION 10 ML, FOLIC ACID MDV 1 MG, THIAMINE HCL INJ 100 MG in SODI... IV SCH (20:15)
[2022-04-18] MEDS ORDERED: SODIUM CHLORIDE 0.9% 1000ML 1,000 ML ONE (22:39)
[2022-04-18] MEDS ORDERED: THIAMINE HCL INJ 100 MG/ML 2ML VIAL ONE (22:39)
[2022-04-18] MEDS ORDERED: CHLORDIAZEPOXIDE HCL 25 MG CAP PO PRN (22:45)
[2022-04-18 23:42] VITALS: BP 109/80
[2022-04-19] VITALS (8 sets, daily range): BP systolic 96–140; BP diastolic 66–91
[2022-04-19] MEDS ORDERED: XIFAXAN550 MG PO (00:14)
[2022-04-19] MEDS: MULTIVITAMINS- 12 INJECTION 10 ML, FOLIC ACID MDV 1 MG, THIAMINE HCL INJ 100 MG in SODI... IV SCH ×2 (03:51→16:29)
[2022-04-19 06:18] LABS: CREATINE KINASE 93 IU/L (30-200)
[2022-04-19 06:19] LABS: ALANINE AMINOTRANSFERASE 32 IU/L (0-55); ALBUMIN 2.4 g/dL (3.5-5.0); ALBUMIN/GLOBULIN RATIO 0.6 (0.8-2.0); ALKALINE PHOSPHATASE 319 IU/L (40-150); ANION GAP 14.4 mmol/L (8-16); BLOOD UREA NITROGEN < 5 mg/dL (7-26); CALCIUM 8.1 mg/dL (8.4-10.2); CARBON DIOXIDE 25 mmol/L (22-29); CHLORIDE 102 mmol/L (98-107); CREATININE, SERUM 0.58 mg/dL (0.72-1.25); GLUCOSE 76 mg/dL (74-118); POTASSIUM 3.4 mmol/L (3.5-5.1); SODIUM 138 mmol/L (136-145)
[2022-04-19 06:58] LABS: BUN/CREATININE RATIO 9 (6-25)
[2022-04-19 07:05] LABS: CHOL/HDL RATIO 10.4 (3.9-4.7); MAGNESIUM 1.6 MG/DL (1.3-2.1); PHOSPHORUS 2.1 MG/DL (2.3-4.7)
[2022-04-19 07:25] LABS: THYROID STIMULATING HORMONE 8.781 uIU/mL (0.350-4.940)
[2022-04-19 07:54] LABS: BASOPHILS # (AUTO) 0.2 (0.0-0.1); BASOPHILS % 1.3 % (0.0-1.0); EOSINOPHILS # (AUTO) 0.4 (0.0-0.4); EOSINOPHILS % 3.4 % (0.0-6.0); HEMATOCRIT 34.5 % (38.2-49.6); HEMOGLOBIN 11.8 g/dL (14.0-18.0); LYMPHOCYTES # (AUTO) 1.1 (1.0-3.2); LYMPHOCYTES % 8.4 % (18.0-39.1); MEAN CORPUSCULAR HEMOGLOBIN 33.8 pg (28-32); MEAN CORPUSCULAR HGB CONC 34.2 g/dL (31-35); MEAN CORPUSCULAR VOLUME 98.9 fL (81-99); MONOCYTES # (AUTO) 0.9 (0.2-0.8); MONOCYTES % 7.3 % (4.4-11.3); NEUTROPHILS # (AUTO) 10.1 (2.1-6.9); PLATELET COUNT 80 x10e3/uL (140-360); RED BLOOD COUNT 3.49 x10e6/uL (4.3-5.7); RED CELL DISTRIBUTION WIDTH 15.7 % (11.7-14.4)
[2022-04-19] MEDS: PANTOPRAZOLE SOD 40 MG TABEC PO SCH (09:33)
[2022-04-19] MEDS: FUROSEMIDE 40 MG TAB PO SCH (09:34)
[2022-04-19] MEDS: TAMSULOSIN HCL 0.4 MG CAP PO SCH (09:34)
[2022-04-19] MEDS: DICYCLOMINE HCL 20 MG TAB PO SCH ×3 (09:34→22:14)
[2022-04-19] MEDS: SPIRONOLACTONE 25 MG TAB PO SCH ×2 (09:34→17:00)
[2022-04-19] MEDS: LISINOPRIL 20 MG TAB PO SCH (09:35)
[2022-04-19] MEDS: RIFAXIMIN 550 MG TABLET PO SCH ×2 (09:35→17:00)
[2022-04-19] MEDS ORDERED: POTASSIUM CHLORIDE 20 MEQ TAB CR PO STA (09:39)
[2022-04-19] MEDS ORDERED: LEVOTHYROXINE SODIUM 25 MCG TABLET PO SCH (10:00)
[2022-04-19 14:18] LABS: CREATINE KINASE 85 IU/L (30-200)
[2022-04-20] VITALS (8 sets, daily range): BP systolic 104–128; BP diastolic 68–96
[2022-04-20 00:58] LABS: % IRON SATURATION 55 % (15-50); IRON 83 ug/dL (65-175); TOTAL IRON BINDING CAPACITY 151 ug/dL (261-478); TRANSFERRIN 108 mg/dL (174-364)
[2022-04-20] MEDS: MULTIVITAMINS- 12 INJECTION 10 ML, FOLIC ACID MDV 1 MG, THIAMINE HCL INJ 100 MG in SODI... IV SCH ×3 (02:36→20:59)
[2022-04-20 05:52] LABS: BASOPHILS # (AUTO) 0.1 (0.0-0.1); BASOPHILS % 0.8 % (0.0-1.0); EOSINOPHILS # (AUTO) 0.5 (0.0-0.4); EOSINOPHILS % 3.9 % (0.0-6.0); HEMOGLOBIN 11.8 g/dL (14.0-18.0); LYMPHOCYTES # (AUTO) 1.2 (1.0-3.2); MEAN CORPUSCULAR HEMOGLOBIN 34.5 pg (28-32); MEAN CORPUSCULAR HGB CONC 34.7 g/dL (31-35); MEAN CORPUSCULAR VOLUME 99.4 fL (81-99); MONOCYTES # (AUTO) 0.9 (0.2-0.8); NEUTROPHILS # (AUTO) 10.5 (2.1-6.9); NEUTROPHILS % 78.8 % (38.7-80.0); PLATELET COUNT 81 x10e3/uL (140-360); RED BLOOD COUNT 3.42 x10e6/uL (4.3-5.7); RED CELL DISTRIBUTION WIDTH 15.5 % (11.7-14.4)
[2022-04-20] MEDS: LEVOTHYROXINE SODIUM 25 MCG TABLET PO SCH (05:57)
[2022-04-20] MEDS ORDERED: SODIUM CHLORIDE 0.9% 1000ML 1,000 ML ONE (06:07)
[2022-04-20 06:19] LABS: ALANINE AMINOTRANSFERASE 29 IU/L (0-55); ALBUMIN 2.3 g/dL (3.5-5.0); ALBUMIN/GLOBULIN RATIO 0.6 (0.8-2.0); ALKALINE PHOSPHATASE 293 IU/L (40-150); ANION GAP 9.2 mmol/L (8-16); BLOOD UREA NITROGEN < 5 mg/dL (7-26); CALCIUM 7.9 mg/dL (8.4-10.2); CARBON DIOXIDE 24 mmol/L (22-29); CHLORIDE 106 mmol/L (98-107); CREATININE, SERUM 0.67 mg/dL (0.72-1.25); GLUCOSE 105 mg/dL (74-118); POTASSIUM 3.2 mmol/L (3.5-5.1); SODIUM 136 mmol/L (136-145)
[2022-04-20 06:24] LABS: BUN/CREATININE RATIO 7 (6-25)
[2022-04-20] MEDS: SPIRONOLACTONE 25 MG TAB PO SCH ×2 (09:00→17:22)
[2022-04-20] MEDS: TAMSULOSIN HCL 0.4 MG CAP PO SCH (09:23)
[2022-04-20] MEDS: FUROSEMIDE 40 MG TAB PO SCH (09:23)
[2022-04-20] MEDS: PANTOPRAZOLE SOD 40 MG TABEC PO SCH (09:23)
[2022-04-20] MEDS: DICYCLOMINE HCL 20 MG TAB PO SCH ×3 (09:24→20:58)
[2022-04-20] MEDS: RIFAXIMIN 550 MG TABLET PO SCH ×2 (09:24→17:22)
[2022-04-20] MEDS: LISINOPRIL 20 MG TAB PO SCH (09:24)
[2022-04-20] MEDS ORDERED: POTASSIUM CHLORIDE 20 MEQ TAB CR PO ONE (13:30)
[2022-04-21] VITALS (7 sets, daily range): BP systolic 110–127; BP diastolic 80–89
[2022-04-21] MEDS: LEVOTHYROXINE SODIUM 25 MCG TABLET PO SCH (05:27)
[2022-04-21] MEDS: PANTOPRAZOLE SOD 40 MG TABEC PO SCH (07:30)
[2022-04-21] MEDS: RIFAXIMIN 550 MG TABLET PO SCH ×2 (08:20→17:33)
[2022-04-21] MEDS: SPIRONOLACTONE 25 MG TAB PO SCH ×2 (08:20→17:34)
[2022-04-21] MEDS: LISINOPRIL 20 MG TAB PO SCH (08:20)
[2022-04-21] MEDS: TAMSULOSIN HCL 0.4 MG CAP PO SCH (08:20)
[2022-04-21] MEDS: FUROSEMIDE 40 MG TAB PO SCH (08:20)
[2022-04-21] MEDS: DICYCLOMINE HCL 20 MG TAB PO SCH ×3 (08:20→21:10)
[2022-04-21] MEDS ORDERED: SODIUM CHLORIDE 0.9% 250ML 250 ML ONE (08:55)
[2022-04-21] MEDS: LIDOCAINE 4% PATCH TP SCH (18:31)
[2022-04-22] VITALS (7 sets, daily range): BP systolic 115–137; BP diastolic 86–92
[2022-04-22] MEDS: MULTIVITAMINS- 12 INJECTION 10 ML, FOLIC ACID MDV 1 MG, THIAMINE HCL INJ 100 MG in SODI... IV SCH ×2 (03:38→13:07)
[2022-04-22 06:06] LABS: BASOPHILS # (AUTO) 0.2 (0.0-0.1); BASOPHILS % 0.9 % (0.0-1.0); EOSINOPHILS # (AUTO) 0.6 (0.0-0.4); HEMATOCRIT 37.8 % (38.2-49.6); HEMOGLOBIN 12.8 g/dL (14.0-18.0); LYMPHOCYTES # (AUTO) 1.7 (1.0-3.2); LYMPHOCYTES % 8.2 % (18.0-39.1); MEAN CORPUSCULAR HGB CONC 33.9 g/dL (31-35); MEAN CORPUSCULAR VOLUME 100.5 fL (81-99); MONOCYTES # (AUTO) 1.8 (0.2-0.8); MONOCYTES % 8.8 % (4.4-11.3); NEUTROPHILS # (AUTO) 16.1 (2.1-6.9); NEUTROPHILS % 78.3 % (38.7-80.0); PLATELET COUNT 107 x10e3/uL (140-360); RED BLOOD COUNT 3.76 x10e6/uL (4.3-5.7); RED CELL DISTRIBUTION WIDTH 15.6 % (11.7-14.4)
[2022-04-22 06:25] LABS: ALBUMIN 2.6 g/dL (3.5-5.0); ALBUMIN/GLOBULIN RATIO 0.6 (0.8-2.0); ANION GAP 13.7 mmol/L (8-16); CALCIUM 8.4 mg/dL (8.4-10.2); CREATININE, SERUM 0.68 mg/dL (0.72-1.25); POTASSIUM 3.7 mmol/L (3.5-5.1)
[2022-04-22] MEDS: LEVOTHYROXINE SODIUM 25 MCG TABLET PO SCH (06:39)
[2022-04-22] MEDS ORDERED: ONDANSETRON HCL 4 MG ORAL DISINTEGRATING TAB PO PRN ×2 (07:45)
[2022-04-22] MEDS: TAMSULOSIN HCL 0.4 MG CAP PO SCH (09:00)
[2022-04-22] MEDS ORDERED: LACTULOSE SYRUP 20 GM/30 ML UDC PO SCH (09:00)
[2022-04-22] MEDS: DICYCLOMINE HCL 20 MG TAB PO SCH ×3 (09:06→21:00)
[2022-04-22] MEDS: SPIRONOLACTONE 25 MG TAB PO SCH ×2 (09:06→17:11)
[2022-04-22] MEDS: PANTOPRAZOLE SOD 40 MG TABEC PO SCH (09:07)
[2022-04-22] MEDS: LISINOPRIL 20 MG TAB PO SCH (09:07)
[2022-04-22] MEDS: RIFAXIMIN 550 MG TABLET PO SCH ×2 (09:07→17:11)
[2022-04-22] MEDS: FUROSEMIDE 40 MG TAB PO SCH (09:07)
[2022-04-22] MEDS: LIDOCAINE 4% PATCH TP SCH (09:57)
[2022-04-22] MEDS ORDERED: ACETAMINOPHEN 325 MG TAB PO ONE (17:50)
[2022-04-22] MEDS: METRONIDAZOLE 500 MG TAB PO SCH (21:00)
[2022-04-23] VITALS (7 sets, daily range): BP systolic 102–127; BP diastolic 66–82
[2022-04-23] MEDS: MULTIVITAMINS- 12 INJECTION 10 ML, FOLIC ACID MDV 1 MG, THIAMINE HCL INJ 100 MG in SODI... IV SCH (00:55)
[2022-04-23] MEDS: LEVOTHYROXINE SODIUM 25 MCG TABLET PO SCH (05:57)
[2022-04-23 08:57] LABS: BASOPHILS # (AUTO) 0.2 (0.0-0.1); BASOPHILS % 0.9 % (0.0-1.0); EOSINOPHILS # (AUTO) 0.2 (0.0-0.4); EOSINOPHILS % 1.1 % (0.0-6.0); HEMATOCRIT 36.5 % (38.2-49.6); HEMOGLOBIN 12.5 g/dL (14.0-18.0); LYMPHOCYTES # (AUTO) 0.6 (1.0-3.2); MEAN CORPUSCULAR HEMOGLOBIN 34.2 pg (28-32); MEAN CORPUSCULAR HGB CONC 34.2 g/dL (31-35); MEAN CORPUSCULAR VOLUME 99.7 fL (81-99); MONOCYTES # (AUTO) 1.5 (0.2-0.8); MONOCYTES % 7.1 % (4.4-11.3); NEUTROPHILS # (AUTO) 18.1 (2.1-6.9); NEUTROPHILS % 86.6 % (38.7-80.0); PLATELET COUNT 120 x10e3/uL (140-360); RED BLOOD COUNT 3.66 x10e6/uL (4.3-5.7); RED CELL DISTRIBUTION WIDTH 15.5 % (11.7-14.4)
[2022-04-23 09:17] LABS: ANION GAP 14.6 mmol/L (8-16); CALCIUM 8.4 mg/dL (8.4-10.2); CREATININE, SERUM 0.7 mg/dL (0.72-1.25); POTASSIUM 3.6 mmol/L (3.5-5.1)
[2022-04-23] MEDS: PANTOPRAZOLE SOD 40 MG TABEC PO SCH (09:42)
[2022-04-23] MEDS: FUROSEMIDE 40 MG TAB PO SCH (09:43)
[2022-04-23] MEDS: METRONIDAZOLE 500 MG TAB PO SCH ×2 (09:43→20:23)
[2022-04-23] MEDS: DICYCLOMINE HCL 20 MG TAB PO SCH ×3 (09:43→20:22)
[2022-04-23] MEDS: TAMSULOSIN HCL 0.4 MG CAP PO SCH (09:43)
[2022-04-23] MEDS: SPIRONOLACTONE 25 MG TAB PO SCH ×2 (09:43→17:12)
[2022-04-23] MEDS: RIFAXIMIN 550 MG TABLET PO SCH ×2 (09:44→17:12)
[2022-04-23] MEDS: LIDOCAINE 4% PATCH TP SCH (09:44)
[2022-04-23] MEDS: LISINOPRIL 20 MG TAB PO SCH (09:44)
[2022-04-23] MEDS ORDERED: SODIUM CHLORIDE 0.9% 1000ML 1,000 ML ONE (09:52)
[2022-04-23 10:09] LABS: BAND NEUTROPHILS % (MANUAL) 2 %; EOSINOPHILS % (MANUAL) 1 % (0-7); LYMPHOCYTES % (MANUAL) 2 % (19-48); MONOCYTES % (MANUAL) 8 % (3.4-9.0); NEUTROPHILS % (MANUAL) 87 % (40-74); PLATELET ESTIMATE ADEQUATE; PLATELET MORPHOLOGY COMMENT NORMAL; RBC MORPHOLOGY COMMENT NORMAL
[2022-04-23] MEDS ORDERED: MAGNESIUM SULFATE 2GM/50ML 50 ML IV ONE ×2 (11:00→13:30)
[2022-04-23] MEDS ORDERED: SODIUM CHLORIDE 0.9% 1000ML 1,000 ML IV PRN (13:45)
[2022-04-24] MEDS ORDERED: MULTIVITAMINS- 12 INJECTION 10 ML, FOLIC ACID MDV 1 MG, THIAMINE HCL INJ 100 MG in SODI... IV SCH ×2 (03:00→09:00)
[2022-04-24 06:05] LABS: BASOPHILS # (AUTO) 0.1 (0.0-0.1); EOSINOPHILS # (AUTO) 0.4 (0.0-0.4); EOSINOPHILS % 3.9 % (0.0-6.0); HEMATOCRIT 31.8 % (38.2-49.6); HEMOGLOBIN 11.4 g/dL (14.0-18.0); LYMPHOCYTES # (AUTO) 1.2 (1.0-3.2); LYMPHOCYTES % 11.1 % (18.0-39.1); MEAN CORPUSCULAR HEMOGLOBIN 36.7 pg (28-32); MEAN CORPUSCULAR HGB CONC 35.8 g/dL (31-35); MEAN CORPUSCULAR VOLUME 102.3 fL (81-99); MONOCYTES % 9.9 % (4.4-11.3); NEUTROPHILS # (AUTO) 7.7 (2.1-6.9); NEUTROPHILS % 73.4 % (38.7-80.0); PLATELET COUNT 71 x10e3/uL (140-360); RED BLOOD COUNT 3.11 x10e6/uL (4.3-5.7)
[2022-04-24] MEDS: LEVOTHYROXINE SODIUM 25 MCG TABLET PO SCH (06:40)
[2022-04-24 07:29] LABS: ALBUMIN 2.3 g/dL (3.5-5.0); ALBUMIN/GLOBULIN RATIO 0.7 (0.8-2.0); ANION GAP 12.1 mmol/L (8-16); CALCIUM 8.2 mg/dL (8.4-10.2); CREATININE, SERUM 0.74 mg/dL (0.72-1.25); POTASSIUM 3.1 mmol/L (3.5-5.1)
[2022-04-24 07:39] VITALS: BP 125/77
[2022-04-24 07:44] LABS: MAGNESIUM 1.5 MG/DL (1.3-2.1); PHOSPHORUS 2.5 MG/DL (2.3-4.7)
[2022-04-24] MEDS: TAMSULOSIN HCL 0.4 MG CAP PO SCH (08:19)
[2022-04-24] MEDS: PANTOPRAZOLE SOD 40 MG TABEC PO SCH (08:19)
[2022-04-24] MEDS: METRONIDAZOLE 500 MG TAB PO SCH ×2 (08:19→21:27)
[2022-04-24] MEDS: RIFAXIMIN 550 MG TABLET PO SCH ×2 (08:21→16:55)
[2022-04-24] MEDS: DICYCLOMINE HCL 20 MG TAB PO SCH ×3 (08:21→21:27)
[2022-04-24] MEDS: LISINOPRIL 20 MG TAB PO SCH (08:21)
[2022-04-24] MEDS: SPIRONOLACTONE 25 MG TAB PO SCH ×2 (08:22→16:55)
[2022-04-24] MEDS: LIDOCAINE 4% PATCH TP SCH (08:23)
[2022-04-24] MEDS: FUROSEMIDE 40 MG TAB PO SCH (08:23)
[2022-04-24] MEDS ORDERED: MAGNESIUM SULFATE 2GM/50ML 50 ML IV ONE ×3 (09:00→15:00)
[2022-04-24 11:34] VITALS: BP 126/90
[2022-04-24] MEDS: THIAMINE HCL 100 MG TAB PO SCH (12:12)
[2022-04-24] MEDS: MULTIVITAMINS/MINERALS TAB PO SCH (12:12)
[2022-04-24] MEDS: FOLIC ACID 1 MG TAB PO SCH (12:12)
[2022-04-24] MEDS: SODIUM CHLORIDE 0.9% 1000ML 1,000 ML IV SCH ×2 (12:13→21:26)
[2022-04-24 12:20] VITALS: BP 126/90
[2022-04-24 15:25] VITALS: BP 108/69
[2022-04-24] MEDS ORDERED: POTASSIUM CHLORIDE 20 MEQ TAB CR PO ONE (17:50)
[2022-04-24 20:00] VITALS: BP 108/70
[2022-04-24 21:00] VITALS: BP 108/70
[2022-04-24] MEDS ORDERED: MELATONIN 5 MG TABLET PO PRN (22:15)
[2022-04-25] VITALS: BP 103/75
[2022-04-25 04:00] VITALS: BP 114/85
[2022-04-25] MEDS: LEVOTHYROXINE SODIUM 25 MCG TABLET PO SCH (05:04)
[2022-04-25] MEDS: SODIUM CHLORIDE 0.9% 1000ML 1,000 ML IV SCH (05:05)
[2022-04-25 06:27] LABS: BASOPHILS # (AUTO) 0.1 (0.0-0.1); BASOPHILS % 0.7 % (0.0-1.0); EOSINOPHILS # (AUTO) 0.4 (0.0-0.4); EOSINOPHILS % 3.7 % (0.0-6.0); LYMPHOCYTES % 10.1 % (18.0-39.1); MEAN CORPUSCULAR HEMOGLOBIN 34.4 pg (28-32); MEAN CORPUSCULAR HGB CONC 35.5 g/dL (31-35); MEAN CORPUSCULAR VOLUME 96.9 fL (81-99); MONOCYTES # (AUTO) 1.2 (0.2-0.8); MONOCYTES % 13.1 % (4.4-11.3); NEUTROPHILS # (AUTO) 6.8 (2.1-6.9); NEUTROPHILS % 72.1 % (38.7-80.0); PLATELET COUNT 93 x10e3/uL (140-360); RED CELL DISTRIBUTION WIDTH 15.4 % (11.7-14.4)
[2022-04-25 06:48] LABS: ALBUMIN 2.2 g/dL (3.5-5.0); ALBUMIN/GLOBULIN RATIO 0.7 (0.8-2.0); ANION GAP 12.3 mmol/L (8-16); CALCIUM 8.1 mg/dL (8.4-10.2); CREATININE, SERUM 0.67 mg/dL (0.72-1.25); POTASSIUM 3.3 mmol/L (3.5-5.1)
[2022-04-25 08:00] VITALS: BP 114/85
[2022-04-25 08:01] VITALS: BP 124/87
[2022-04-25] MEDS: LISINOPRIL 20 MG TAB PO SCH (08:43)
[2022-04-25] MEDS: TAMSULOSIN HCL 0.4 MG CAP PO SCH (08:43)
[2022-04-25] MEDS: RIFAXIMIN 550 MG TABLET PO SCH (08:43)
[2022-04-25] MEDS: FOLIC ACID 1 MG TAB PO SCH (08:43)
[2022-04-25] MEDS: FUROSEMIDE 40 MG TAB PO SCH (08:43)
[2022-04-25] MEDS: THIAMINE HCL 100 MG TAB PO SCH (08:43)
[2022-04-25] MEDS: DICYCLOMINE HCL 20 MG TAB PO SCH (08:43)
[2022-04-25] MEDS: MULTIVITAMINS/MINERALS TAB PO SCH (08:44)
[2022-04-25] MEDS: SPIRONOLACTONE 25 MG TAB PO SCH (08:44)
[2022-04-25] MEDS: LIDOCAINE 4% PATCH TP SCH (08:46)
[2022-04-25] MEDS: METRONIDAZOLE 500 MG TAB PO SCH (09:29)
[2022-04-25] MEDS: PANTOPRAZOLE SOD 40 MG TABEC PO SCH (09:29)
[2022-04-25] MEDS ORDERED: MAGNESIUM SULFATE 2GM/50ML 50 ML IV ONE ×2 (11:00→13:00)
[2022-04-25] MEDS ORDERED: B-1100 MG PO (11:22)
[2022-04-25] MEDS ORDERED: LEVOTHYROXINE25 MCG PO (11:22)
[2022-04-25] MEDS ORDERED: Folic Acid PO (11:22)
[2022-04-25 11:38] VITALS: BP 127/85
[2022-04-25] MEDS ORDERED: POTASSIUM CHLORIDE 10MEQ EA PO ONE (12:00)
== END 2022-04-25 13:40 | disposition home or self-care (01) | DRG 434 ==
LOC: ER 10:33 → ERHOLD 14:10 → MED/SURG3 17:42
PROVIDERS: ADMIT Internal Medicine; ATTEND Internal Medicine
DX: K70.31 Alcoholic cirrhosis of liver with ascites (principal); F10.129 Alcohol abuse with intoxication, unspecified; D69.6 Thrombocytopenia, unspecified; E87.6 Hypokalemia; I10 Essential (primary) hypertension; K21.9 Gastro-esophageal reflux disease without esophagitis; E83.42 Hypomagnesemia; K40.90 Unilateral inguinal hernia, without obstruction or gangrene, not specified as recurrent; E03.9 Hypothyroidism, unspecified; R39.15 Urgency of urination; E66.01 Morbid (severe) obesity due to excess calories; Z20.822 Contact with and (suspected) exposure to COVID-19; Z85.46 Personal history of malignant neoplasm of prostate; Z98.1 Arthrodesis status
CPT/HCPCS: 0223U; 36415; 71045; 74177; 74470; 76705; 78226; 78227; 80048; 80053; 80061; 80320; 81001; 82105; 82140; 82550; 82553; 82607; 82728; 82746; 83036; 83540; 83605; 83690; 83735; 83880; 84100; 84443; 84466; 84484; 85025; 85045; 85610; 85730; 87040; 87086; 93005; 94799; 96361; 99284; A9537; J0696; J2543; J3411; J3475; J7030; J7050; Q9967

== ENCOUNTER → 2024-08-23 | Day surgery (SDC) | payer OTHER ==
[~2024-08-23] MED LIST changes: +ALDACTONE100 MG PO; +ASCORBIC ACID500 MG PO; +B-1100 MG PO; +DEPAKOTE ER250 MG PO; +DICYCLOMINE HCL10 MG PO; +ENULOSE10 GM/15 M PO; +FERROUS SULFAT325 MG PO; +FOLIC ACID PO; +FOLIC ACID0.4 MG PO; +Folic Acid PO; +GABAPENTIN100 MG PO; +IBUPROFEN400 MG PO; +KEPPRA500 MG PO; +LEVOTHYROXINE25 MCG PO; +LIDOCAINE HCL 2% LOCAL INJ 5 ML SDV VIAL INJ ONE; +MULTIPLE VITAM1 EAC1 PO; +PANTOPRAZOLE SO40 MG PO; +POTASSIUM PO; +PROPOFOL IV EMULSION 10 MG/ML 20 ML VIAL ONE; +PROPRANOLOL HCL10 MG PO; +SERTRALINE HCL50 MG PO; +TRAZODONE HCL50 MG PO; +TUMS PO; +TYLENOL325 MG PO; +ULTRAM 50MG50 MG PO; +VITAMIN B-1100 M1 PO; +VITAMIN B-121000 MCG PO; +VITAMIN D350 MCG PEG; +XIFAXAN550 MG PO
[2024-08-23 10:07] LABS: BASOPHILS # (AUTO) 0.1 (0.0-0.1); BASOPHILS % 0.8 % (0.0-1.0); EOSINOPHILS # (AUTO) 0.7 (0.0-0.4); EOSINOPHILS % 10.9 % (0.0-6.0); HEMATOCRIT 32.1 % (38.2-49.6); HEMOGLOBIN 10.8 g/dL (14.0-18.0); LYMPHOCYTES # (AUTO) 1.2 (1.0-3.2); LYMPHOCYTES % 19.9 % (18.0-39.1); MEAN CORPUSCULAR HEMOGLOBIN 31.9 pg (28-32); MEAN CORPUSCULAR HGB CONC 33.6 g/dL (31-35); MEAN CORPUSCULAR VOLUME 94.7 fL (81-99); MONOCYTES % 16.4 % (4.4-11.3); NEUTROPHILS # (AUTO) 3.1 (2.1-6.9); NEUTROPHILS % 51.7 % (38.7-80.0); PLATELET COUNT 47 x10e3/uL (140-360); RED BLOOD COUNT 3.39 x10e6/uL (4.3-5.7); WHITE BLOOD COUNT 6.04 x10e3/uL (4.8-10.8)
[2024-08-23] MEDS: LACTATED RINGER'S 1,000 ML ONE (10:19)
[2024-08-23 10:25] LABS: INR 1.15; PROTHROMBIN TIME 15.7 seconds (11.9-14.5)
[2024-08-23 10:26] LABS: PARTIAL THROMBOPLASTIN TIME 35.1 seconds (23.8-35.5)
[2024-08-23 10:33] LABS: ALBUMIN 2.6 g/dL (3.5-5.0); ALBUMIN/GLOBULIN RATIO 1.1 (0.8-2.0); ANION GAP 11.9 mmol/L (8-16); BILIRUBIN,TOTAL 1.6 mg/dL (0.2-1.2); CALCIUM 8.2 mg/dL (8.4-10.2); CREATININE, SERUM 0.95 mg/dL (0.72-1.25); POTASSIUM 3.9 mmol/L (3.5-5.1); TOTAL PROTEIN 4.9 g/dL (6.5-8.1)
[2024-08-23 13:41] VITALS: TEMP 98.1
[2024-08-23 13:55] VITALS: BP 101/72; PULSE 54; RESP 13; O2SAT 99
== END | disposition home or self-care (01) ==
LOC: OR 09:11
PROVIDERS: ATTEND Internal Medicine Gastroenterology
DX: K29.50 Unspecified chronic gastritis without bleeding (principal); K74.60 Unspecified cirrhosis of liver; K44.9 Diaphragmatic hernia without obstruction or gangrene; K76.6 Portal hypertension; K21.00 Gastro-esophageal reflux disease with esophagitis, without bleeding; Z87.19 Personal history of other diseases of the digestive system; D50.9 Iron deficiency anemia, unspecified; R00.1 Bradycardia, unspecified
CPT/HCPCS: 36415; 43239; 80053; 85025; 85610; 85730; 88305; 88342; 93005; J2003; J2704; J7121; 43255

== ENCOUNTER 2024-10-11 18:05 | Emergency (ER) | payer OTHER ==
[~2024-10-11] VITALS: Ht 172.7 cm; Wt 90.7 kg
[~2024-10-11 18:05] MED LIST changes: -LIDOCAINE HCL 2% LOCAL INJ 5 ML SDV VIAL INJ ONE; -PROPOFOL IV EMULSION 10 MG/ML 20 ML VIAL ONE
[2024-10-11 18:24] VITALS: PULSE 64; TEMP 97.9
[2024-10-11] MEDS ORDERED: ONDANSETRON HCL INJ 2MG/ML 2ML 2 MG/ML VIAL IV STA (18:33)
[2024-10-11] MEDS ORDERED: LACTATED RINGER'S 1,000 ML INJ ONE (18:45)
[2024-10-11 19:00] VITALS: RESP 20
[2024-10-11] MEDS: LACTATED RINGER'S 1,000 ML INJ ONE (19:01)
[2024-10-11 19:11] LABS: BASOPHILS % 0.5 % (0.0-1.0); EOSINOPHILS % 3.7 % (0.0-6.0); LYMPHOCYTES % 14.1 % (18.0-39.1); MONOCYTES % 21.6 % (4.4-11.3); NEUTROPHILS % 59.7 % (38.7-80.0); RED CELL DISTRIBUTION WIDTH 14.4 % (11.7-14.4)
[2024-10-11 19:35] LABS: EST GLOMERULAR FILTRATION RATE 66.0 ML/MIN (>=60)
[2024-10-11 20:50] LABS: AMPHETAMINES SCREEN,URINE NEGATIVE (NEGATIVE); CANNABINOIDS SCREEN,URINE NEGATIVE (NEGATIVE); COCAINE SCREEN,URINE NEGATIVE (NEGATIVE); LEUKOCYTE ESTERASE ,URINE NEGATIVE (NEGATIVE); METHADONE SCREEN, URINE NEGATIVE (NEGATIVE); OPIATES SCREEN,URINE NEGATIVE (NEGATIVE); PROTEIN,URINE DIPSTICK NEGATIVE (NEGATIVE); URINE UROBILINOGEN 4 mg/dL (0.2 - 1)
[2024-10-11 22:05] VITALS: BP 104/70; PULSE 69; RESP 18; O2SAT 98
== END 2024-10-11 22:09 | disposition home or self-care (01) ==
LOC: ER 18:27
DX: R53.1 Weakness (principal); X30.XXXA Exposure to excessive natural heat, initial encounter; R53.83 Other fatigue; I10 Essential (primary) hypertension; K76.9 Liver disease, unspecified; K21.9 Gastro-esophageal reflux disease without esophagitis; Z85.46 Personal history of malignant neoplasm of prostate
CPT/HCPCS: 36415; 70450; 80053; 80307; 81001; 82550; 84484; 85025; 93005; 99284; J7121

== ENCOUNTER → 2024-11-16 | Outpatient (REF) | payer OTHER | LOC: US 10:08 | PROVIDERS: ATTEND Nurse Practitioner Family | DX: K74.69 Other cirrhosis of liver (principal) | CPT/HCPCS: 76700 ==